=== PATIENT | male | born 1980 | race Caucasian/White ===

== ENCOUNTER 2018-09-23 16:41 | Inpatient (IN) | payer BC ==
[~2018-09-23] VITALS: Ht 175.3 cm; Wt 90.4 kg
[2018-09-23] MEDS ORDERED: FAMOTIDINE 20 MG INJ IV STA (17:42)
[2018-09-23] MEDS ORDERED: SOD CHLORIDE 0.9% 1,000 ML IV STA (17:42)
--- NOTE | 2018-09-23 18:43 | ERD ---
ER Documentation Chief Complaint Chief Complaint RUQ PAIN, YELLOWISH SCLERAE HPI 38-year-old male presents with approximate 60 history of worsening right upper quadrant abdominal pain. Is also noted some yellow eyes over the last few days. Had a few month history of intermittent epigastric pain that he thought was indigestion. Denies any fevers, vomiting, lower abdominal pain, urinary complaints. Denies history of known gallstones. Presents with a referral from a urgent care with a informal ultrasound shows common bile duct dilated with stones and sludge. ROS All systems reviewed and are negative except as per history of present illness. Allergies Allergies: Coded Allergies: No Known Allergy (Unverified , 09/23/18) PMhx/Soc History of Surgery: No Anesthesia Reaction: No Hx Neurological Disorder: No Hx Respiratory Disorders: No Hx Cardiac Disorders: No Hx Psychiatric Problems: No Hx Miscellaneous Medical Probl: No Hx Alcohol Use: No Hx Substance Use: No Hx Tobacco Use: No Smoking Status: Current every day smoker FmHx Family History: No diabetes, No coronary disease, No other Physical Exam Vitals Vital Signs Date Temp Pulse Resp B/P (MAP) Pulse Ox O2 O2 Flow FiO2 Time Delivery Rate 09/23/18 98.5 85 19 158/88 96 16:48 (111) Physical Exam Const: No acute distress Head: Atraumatic Eyes: Positive icterus. Eyes Nicolas. ENT: Normal External Ears, Nose and Mouth. Neck: Full range of motion. No meningismus. Resp: Clear to auscultation bilaterally Cardio: Regular rate and rhythm, no murmurs Abd: Soft, minimal epigastric and right upper quadrant tenderness without Noble sign. No tenderness McBurney's point no rebound. Non distended. Normal bowel sounds Skin: No petechiae or rashes Back: No midline or flank tenderness Ext: No cyanosis, or edema Neur: Awake and alert Psych: Normal Mood and Affect Result Diagram: 09/23/18 1756 09/23/18 1756 Results 24 hrs Laboratory Tests Test 09/23/18 17:56 White Blood Count 7.9 10^3/ul Red Blood Count 5.58 10^6/ul Hemoglobin 16.0 g/dl Hematocrit 48.9 % Mean Corpuscular Volume 87.6 fl Mean Corpuscular Hemoglobin 28.7 pg Mean Corpuscular Hemoglobin Concent 32.7 g/dl Red Cell Distribution Width 13.4 % Platelet Count 280 10^3/UL Mean Platelet Volume 9.9 fl Immature Granulocytes % 0.300 % Neutrophils % 68.4 % Lymphocytes % 20.9 % Monocytes % 9.6 % Eosinophils % 0.4 % Basophils % 0.4 % Nucleated Red Blood Cells % 0.0 /100WBC Immature Granulocytes # 0.020 10^3/ul Neutrophils # 5.4 10^3/ul Lymphocytes # 1.7 10^3/ul Monocytes # 0.8 10^3/ul Eosinophils # 0.0 10^3/ul Basophils # 0.0 10^3/ul Nucleated Red Blood Cells # 0.0 10^3/ul Prothrombin Time 12.2 Sec Prothrombin Time Ratio 1.0 INR International Normalized Ratio 0.89 Activated Partial Thromboplast Time 30.0 Sec Urine Color DOROTHY Urine Clarity CLEAR Urine pH 6.0 Urine Specific [place] 1.003 Urine Ketones 1+ mg/dL Urine Nitrite NEGATIVE mg/dL Urine Bilirubin NEGATIVE mg/dL Urine Urobilinogen NEGATIVE mg/dL Urine Leukocyte Esterase NEGATIVE [place]/ul Urine Hemoglobin NEGATIVE mg/dL Urine Glucose NEGATIVE mg/dL Urine Total Protein NEGATIVE mg/dl Sodium Level 141 mmol/L Potassium Level 3.9 mmol/L Chloride Level 100 mmol/L Carbon Dioxide Level 30 mmol/L Anion Gap 11 Blood Urea Nitrogen 9 mg/dl Creatinine 0.97 mg/dl Est Glomerular Filtrat Rate mL/min > 60 mL/min Glucose Level 101 mg/dl Calcium Level 9.4 mg/dl Total Bilirubin 5.6 mg/dl Direct Bilirubin 4.20 mg/dl Indirect Bilirubin 1.4 mg/dl Aspartate Amino Transf (AST/SGOT) 391 IU/L Alanine Aminotransferase (ALT/SGPT) 748 IU/L Alkaline Phosphatase 234 IU/L Total Protein 9.1 g/dl Albumin 4.6 g/dl Globulin 4.50 g/dl Albumin/Globulin Ratio 1.02 Lipase 91 U/L Current Medications Medications Dose Sig/Joana Start Time Status Last (Trade) Ordered Route PRN Stop Time Admin Dose Reason Admin Sodium 1,000 ml @ Q1H STAT 09/23/18 09/23/18 Chloride 1,000 mls/hr IV 17:42 17:56 09/23/18 18:41 Famotidine 20 mg ONCE STAT 09/23/18 DC 09/23/18 (Pepcid Iv) IV 17:42 17:56 09/23/18 17:43 Procedures/MDM Patient presents with icterus and referral for evaluation of possible choledocholithiasis. CBC is normal. CMP shows transaminitis and elevated total bili as well as indirect bili. Lipase is normal. Right upper quadrant ultrasound shows gallstones with sludge and a stone in the gallbladder neck with dilated common bile duct of 7.8 mm. Patient was placed n.p.o., given 1 L normal saline IV, Pepcid 20 mg IV. Coags normal. Patient will be admitted for further evaluation signs and symptoms of biliary colic and choledocholithiasis. Current signs or symptoms do not suggest sepsis, appendicitis, obstruction, additional complications. Patient has elevated blood pressure as well which we will defer to the inpatient team. Departure Diagnosis: Primary Impression: Choledocholithiasis Additional Impressions: Gallstones Elevated blood pressure reading Condition: ROQUE Qiu MD September 23, 2018 18:43
[2018-09-23] MEDS ORDERED: ONDANSETRON 4 MG INJ IV PRN ×2 (19:30→20:30)
[2018-09-23] MEDS ORDERED: ACETAMINOPHEN 325 MG TAB PO PRN (19:30)
--- NOTE | 2018-09-23 19:53 | CONS ---
Assessment/Plan Assessment/Plan Assessment/Plan (Daily) Choledocholithiasis MRCP - will likely need ERCP Will also need lap fer. Discussed outpatient lap fer. Patient is agreeable. Consultation Date/Type/Reason Admit Date/Time Date/Time of Note DATE: 09/23/18 TIME: 19:48 Hx of Present Illness The patient is a 38-year-old male with no medical issues. Patient was in usual state of health until last week when he developed some upper abdominal pain. Describes it as intermittent epigastric and right upper quadrant pain. Denies nausea or emesis. He denies fevers or chills. This was not severe. However, this morning he noticed that he was jaundiced and presented to the ER. 14 point review of systems was performed. Pertinent negatives and positives per HPI. Past Medical History Medical History: no pertinent history Medications Current Medications Ondansetron HCl (Zofran Inj) 4 mg BRIDGE ORDER PRN IV NAUSEA/VOMITING; Start 09/23/18 at 19:30; Stop 09/24/18 at 19:29 Acetaminophen (Tylenol Tab) 650 mg ER BRIDGE PRN PO .MILD PAIN 1-3 OR TEMP; Start 09/23/18 at 19:30; Stop 09/24/18 at 19:29 Allergies: Coded Allergies: No Known Allergy (Unverified , 09/23/18) Past Surgical History Past Surgical Hx: no surgical history Family History Significant Family History: no pertinent family hx Social History Alcohol Use: rarely Smoking Status: Current every day smoker Exam/Review of Systems Exam Vitals Vital Signs Date Temp Pulse Resp B/P (MAP) Pulse Ox O2 O2 Flow FiO2 Time Delivery Rate 09/23/18 98.5 85 19 158/88 96 16:48 (111) Constitutional: alert, oriented, well developed, other (Icteric) Head: normocephalic, atraumatic Eyes: nl conjunctiva ENMT: nl external ears & nose, nl lips & teeth, nl nasal mucosa & septum Neck: supple, non-tender Respiratory: clear to auscultation, normal air movement Cardiovascular: regular rate and rhythm, nl pulses Gastrointestinal: soft, non-tender, other (Mild epigastric tenderness) Extremities: normal pulses Neurological: TANNER ROTARY DRUM CONTINUOUS PROCESS II-XII intact, nl mental status Skin: nl turgor, rash or lesions Lymph: nl lymph nodes Results Result Diagram: 09/23/18175509/23/18 1756 Results 24hrs Laboratory Tests Test 09/23/18 17:56 White Blood Count 7.9 Red Blood Count 5.58 Hemoglobin 16.0 Hematocrit 48.9 Mean Corpuscular Volume 87.6 Mean Corpuscular Hemoglobin 28.7 L Mean Corpuscular Hemoglobin Concent 32.7 Red Cell Distribution Width 13.4 Platelet Count 280 Mean Platelet Volume 9.9 Immature Granulocytes % 0.300 Neutrophils % 68.4 Lymphocytes % 20.9 Monocytes % 9.6 Eosinophils % 0.4 Basophils % 0.4 Nucleated Red Blood Cells % 0.0 Immature Granulocytes # 0.020 Neutrophils # 5.4 Lymphocytes # 1.7 Monocytes # 0.8 Eosinophils # 0.0 Basophils # 0.0 Nucleated Red Blood Cells # 0.0 Prothrombin Time 12.2 Prothrombin Time Ratio 1.0 INR International Normalized Ratio 0.89 Activated Partial Thromboplast Time 30.0 Urine Color DOROTHY Urine Clarity CLEAR Urine pH 6.0 Urine Specific [employer] 1.003 Urine Ketones 1+ H Urine Nitrite NEGATIVE Urine Bilirubin NEGATIVE Urine Urobilinogen NEGATIVE Urine Leukocyte Esterase NEGATIVE Urine Hemoglobin NEGATIVE Urine Glucose NEGATIVE Urine Total Protein NEGATIVE Sodium Level 141 Potassium Level 3.9 Chloride Level 100 Carbon Dioxide Level 30 Anion Gap 11 Blood Urea Nitrogen 9 Creatinine 0.97 Est Glomerular Filtrat Rate mL/min > 60 Glucose Level 101 Calcium Level 9.4 Total Bilirubin 5.6 H Direct Bilirubin 4.20 H Indirect Bilirubin 1.4 H Aspartate Amino Transf (AST/SGOT) 391 H Alanine Aminotransferase (ALT/SGPT) 748 H Alkaline Phosphatase 234 H Total Protein 9.1 H Albumin 4.6 Globulin 4.50 H Albumin/Globulin Ratio 1.02 Lipase 91 Imaging Imaging Patient: DESIREE CASTELLANOS : 1980 Age: 38 Sex: M MR #: [id number] DOS: 09/23/18 1742 Ordering MD: ROQUE PAREDES MD Location: [facility] Room/Bed: PROCEDURE: US Abdomen (right upper quadrant). CLINICAL INDICATION: Right upper quadrant abdomen pain. TECHNIQUE: Multiple real-time longitudinal and transverse images of the right upper quadrant of the abdomen were acquired utilizing a curved array transducer. Images were reviewed on a high-resolution PACS workstation. COMPARISON: None FINDINGS: The liver is normal in size and normal in echogenicity. There is no focal hepatic lesion. Color Doppler and pulsed Doppler sonography demonstrate normal antegrade flow in the portal vein. The gallbladder contains sludge and gallstones including a gallstone in the gallbladder neck. There is no gallbladder wall thickening or fluid around the gallbladder. The bile ducts are dilated with the common bile duct measuring 7.5 mm in diameter. The visualized portions of the pancreas are unremarkable with obscuration of the tail of the pancreas. No free fluid is present. The right kidney measures 10.8 x 5.5 x 6.8 cm. There is normal echogenicity of the right kidney. There is no perinephric fluid collection. No hydronephrosis, mass, or calculus is seen. IMPRESSION: 1. Gallstones and sludge in the gallbladder. Gallstone in the gallbladder neck. 2. Dilated common bile duct measuring 7.5 mm. 3. Otherwise unremarkable right upper quadrant abdomen ultrasound. RPTAT: QQ .Roque Forte MD, MD Date Time Electronically viewed and signed by .Roque Forte MD, MD on 09/23/2018 18:17 .R/ CC: ROQUE PAREDES MD [id number] Medications Medication Current Medications Ondansetron HCl (Zofran Inj) 4 mg BRIDGE ORDER PRN IV NAUSEA/VOMITING; Start 09/23/18 at 19:30; Stop 09/24/18 at 19:29 Acetaminophen (Tylenol Tab) 650 mg ER BRIDGE PRN PO .MILD PAIN 1-3 OR TEMP; Start 09/23/18 at 19:30; Stop 09/24/18 at 19:29 HADLEY GRUBBS MD September 23, 2018 19:53
[2018-09-23] MEDS ORDERED: NACL 0.9% 3 ML SYG IV SCH (20:30)
[2018-09-23] MEDS ORDERED: BISACODYL (EC) 5 MG TAB PO PRN (20:30)
[2018-09-23] MEDS ORDERED: HYDROmorphONE 0.5 MG/0.5 ML SYG IV PRN (20:30)
[2018-09-23] MEDS ORDERED: DOCUSATE SODIUM 100 MG CAP PO PRN (20:30)
[2018-09-23] MEDS: SOD CHLORIDE 0.9% 1,000 ML IV SCH (23:34)
[2018-09-23 23:43] VITALS: BP 120/83; PULSE 84; RESP 18
[2018-09-23 23:54] VITALS: Ht 175.3 cm; Wt 90.4 kg
[2018-09-24] VITALS (11 sets, daily range): BP systolic 122–143; BP diastolic 73–94; PULSE 72–87; RESP 16–19
--- NOTE | 2018-09-24 05:04 | HP ---
Date/Time of Note Date/Time of Note DATE: 09/24/18 TIME: 04:57 Assessment/Plan VTE Prophylaxis SCD applied (from Nsg): Yes Pharmacological prophylaxis: NA/contraindicated Pharm contraindication: low risk/ambulating Lines/Catheters IV Catheter Type (from Nrsg): Peripheral IV Assessment/Plan Hospital Course This is a 38-year-old male being admitted to the [facility] floor for: #1 choledocholithiasis: Gallbladder ultrasound shows:Gallstones and sludge in the gallbladder. Gallstone in the gallbladder neck. Dilated common bile duct measuring 7.5 mm. We will keep the patient n.p.o. except meds, IV fluid hydration with normal saline. Pain control with Dilaudid. Zofran for nausea. Patient is already been seen by general surgery and recommendation is for ERCP and likely follow-up as an outpatient for elective cholecystectomy. I have consulted of GI for ERCP. #2 borderline obesity: We will check hemoglobin A1c, lipid panel, TSH #3 DVT GI prophylaxis: SCDs, no GI prophylaxis indicated Further treatment strategy will be implemented as per the clinical course. Result Diagram: 09/23/18175509/23/18 175 Results 24hrs Laboratory Tests Test 09/23/18 17:56 White Blood Count 7.9 Red Blood Count 5.58 Hemoglobin 16.0 Hematocrit 48.9 Mean Corpuscular Volume 87.6 Mean Corpuscular Hemoglobin 28.7 L Mean Corpuscular Hemoglobin Concent 32.7 Red Cell Distribution Width 13.4 Platelet Count 280 Mean Platelet Volume 9.9 Immature Granulocytes % 0.300 Neutrophils % 68.4 Lymphocytes % 20.9 Monocytes % 9.6 Eosinophils % 0.4 Basophils % 0.4 Nucleated Red Blood Cells % 0.0 Immature Granulocytes # 0.020 Neutrophils # 5.4 Lymphocytes # 1.7 Monocytes # 0.8 Eosinophils # 0.0 Basophils # 0.0 Nucleated Red Blood Cells # 0.0 Prothrombin Time 12.2 Prothrombin Time Ratio 1.0 INR International Normalized Ratio 0.89 Activated Partial Thromboplast Time 30.0 Urine Color DOROTHY Urine Clarity CLEAR Urine pH 6.0 Urine Specific [place] 1.003 Urine Ketones 1+ H Urine Nitrite NEGATIVE Urine Bilirubin NEGATIVE Urine Urobilinogen NEGATIVE Urine Leukocyte Esterase NEGATIVE Urine Hemoglobin NEGATIVE Urine Glucose NEGATIVE Urine Total Protein NEGATIVE Sodium Level 141 Potassium Level 3.9 Chloride Level 100 Carbon Dioxide Level 30 Anion Gap 11 Blood Urea Nitrogen 9 Creatinine 0.97 Est Glomerular Filtrat Rate mL/min > 60 Glucose Level 101 Calcium Level 9.4 Total Bilirubin 5.6 H Direct Bilirubin 4.20 H Indirect Bilirubin 1.4 H Aspartate Amino Transf (AST/SGOT) 391 H Alanine Aminotransferase (ALT/SGPT) 748 H Alkaline Phosphatase 234 H Total Protein 9.1 H Albumin 4.6 Globulin 4.50 H Albumin/Globulin Ratio 1.02 Lipase 91 HPI/ROS Admit Date/Time Admit Date/Time Hx of Present Illness Chief complaint: Epigastric pain x1 week This is a 38-year-old male who presented to the emergency department with 1 week of epigastric pain. Patient reports that he started experiencing pain in the epigastric area approximately 1 week ago he denies any fevers or nausea or vomiting. He thought it was initially indigestion and he started taking simethicone and other pain medications but he did not notice improvement. He was seen at the urgent care and given medications and sent home. He continued to not feeling relief from the pain. He then yesterday noticed yellow discoloration in his eyes so came into the emergency department. Patient had a gallbladder ultrasound performed in the emergency department which showed Gallstones and sludge in the gallbladder. Gallstone in the gallbladder neck.Dilated common bile duct measuring 7.5 mm. Patient was seen by general surgery who recommended ERCP and likely outpatient follow-up for elective cholecystectomy. Allergies: NKDA Medications: None ROS Const: As per HPI Eyes : As per HPI ENT: No pain, sore throat, congestion, congestion, dysphagia or discharge Respiratory: No shortness of breath, cough, sputum, wheezing, or pleuritic pain Cardiovascular: No chest pain, palpitation, PND, or edema GI : As per HPI Genitourinary: No dysuria, hematuria, flank pain , discharge or CVA tenderness Musculoskeletal: No joint pain, back pain, neck pain, restricted range of motion in neck or joints Skin: No rash, bruising or hives Neuro: No headache, dizziness, syncope, seizure, focal weakness Endocrine: No polyuria, polydipsia, temperature intolerance Psych: No hallucination, depression, anxiety or suicidal ideation PMH/Family/Social Past Medical History Medical History: no pertinent history Medications Current Medications Sodium Chloride 1,000 ml @ 80 mls/hr [id number] IV Last administered on 09/23/18at 23:34; Admin Dose 80 MLS/HR; Start 09/23/18 at 20:13 IV Flush (NS 3 ml) 3 ml PER PROTOCOL IV ; Start 09/23/18 at 20:30 Ondansetron HCl (Zofran Inj) 4 mg Q6H PRN IV NAUSEA/VOMITING; Start 09/23/18 at 20:30 Acetaminophen (Tylenol Tab) 650 mg Q6H PRN PO .PAIN 1-3 OR TEMP; Start 09/23/18 at 20:30 Hydromorphone HCl (Dilaudid) 0.5 mg Q4H PRN IV .SEVERE PAIN 7-10; Start 09/23/18 at 20:30 Docusate Sodium (Colace) 100 mg Q12H PRN PO .CONSTIPATION; Start 09/23/18 at 20:30 Bisacodyl (Dulcolax) 5 mg DAILY PRN PO .CONSTIPATION; Start 09/23/18 at 20:30 Coded Allergies: No Known Allergy (Unverified , 09/23/18) Past Surgical History Past Surgical Hx: no surgical history Family History Significant Family History: no pertinent family hx Social History Alcohol Use: none Smoking Status: Never smoker Drug Use: none Exam/Review of Systems Vital Signs Vitals Vital Signs Date Temp Pulse Resp B/P (MAP) Pulse Ox O2 O2 Flow FiO2 Time Delivery Rate 09/23/18 98.4 84 18 120/83 97 Room Air 23:43 (95) Intake and Output 09/23/18 09/23/18 09/24/18 1515:00 23:00 07:00 IntakeIntake Total 450 ml BalanceBalance 450 ml Exam Exam General: Pleasant male currently lying in bed in no acute distress HEENT: Atraumatic, normocephalic. The pupils are equal, round and reactive. Extraocular motor are intact Neck: Supple with full range of motion. No rigidity or meningismus Chest: Nontender Lungs: Clear to auscultation bilaterally no crackles rales or wheezing Heart: Normal S1-S2, Regular rhythm and rate. No murmur, S3, or S4 Abdomen: Soft , epigastric pain to palpation, nondistended bowel sounds are present. No guarding no rebound tenderness , No masses or organomegaly. No costovertebral temporal angle mass Extremities: Normal to inspection, no edema no cyanosis Neurologic: Normal mental status, speech normal, cranial nerves II through XII are intact, motor and sensory are intact, no focal weakness Additional Comments PROCEDURE: US Abdomen (right upper quadrant). CLINICAL INDICATION: Right upper quadrant abdomen pain. TECHNIQUE: Multiple real-time longitudinal and transverse images of the right upper quadrant of the abdomen were acquired utilizing a curved array transducer. Images were reviewed on a high-resolution PACS workstation. COMPARISON: None FINDINGS: The liver is normal in size and normal in echogenicity. There is no focal hepatic lesion. Color Doppler and pulsed Doppler sonography demonstrate normal antegrade flow in the portal vein. The gallbladder contains sludge and gallstones including a gallstone in the gallbladder neck. There is no gallbladder wall thickening or fluid around the gallbladder. The bile ducts are dilated with the common bile duct measuring 7.5 mm in diameter. The visualized portions of the pancreas are unremarkable with obscuration of the tail of the pancreas. No free fluid is present. The right kidney measures 10.8 x 5.5 x 6.8 cm. There is normal echogenicity of the right kidney. There is no perinephric fluid collection. No hydronephrosis, mass, or calculus is seen. IMPRESSION: 1. .Gallstones and sludge in the gallbladder. Gallstone in the gallbladder neck. 2. Dilated common bile duct measuring 7.5 mm 3. Otherwise unremarkable right upper quadrant abdomen ultrasound. RPTAT: QQ .Roque Forte MD, Date Time Electronically viewed and signed by .Roque Forte MD, on 09/23/2018 18:17 .R/ CC: ROQUE PAREDES MD [id number] BALDEV CHAUDHARY September 24, 2018 05:04
[2018-09-24] MEDS: SOD CHLORIDE 0.9% 1,000 ML IV SCH ×2 (08:43→11:34)
--- NOTE | 2018-09-24 11:52 | PN ---
Date/Time of Note Date/Time of Note DATE: 09/24/18 TIME: 11:51 Assessment/Plan VTE Prophylaxis Risk score (from Nsg)>0 risk: 1 SCD applied (from Nsg): Yes Pharmacological prophylaxis: NA/contraindicated Pharm contraindication: low risk/ambulating Lines/Catheters [facility] (from [facility]): Peripheral IV Assessment/Plan Hospital Course SUBJECTIVE: Lying in bed comfortably. No abdominal pain. No fevers. OBJECTIVE: Vital signs-see below PHYSICAL EXAM: Constitutional: Adequately built,not in acute distress. HEENT: Head atraumatic and normocephalic. Eyes: Extraocular muscles intact. Anicteric sclerae. Pupils equal bilaterally, reactive to light. NECK: Supple without lymph node. CHEST: Clear and good breath sounds equally. No wheezing. No rhonchi. HEART: S1, S2. Regular rate and rhythm. ABDOMEN: Soft/non tender with no rebound tenderness. Bowel sounds were present. EXTREMITIES: No cyanosis, clubbing or edema. NEUROLOGIC: Alert and oriented x3. No focal deficit. No sensory deficit. PSYCHOSOCIAL: No signs of depression. INTEGUMENTARY: No open wounds. ASSESSMENT AND PLAN:38 yo M w/ no PMH here w/abd pain, found to have choledocholithiasis/cholelithiasis. Choledocholithiasis -Plan is ERCP this afternoon -N.p.o., pain medications. Cholelithiasis -Appreciate surgery follow-up and recommended eventual outpatient cholecystectomy. VT prophylaxis: SCDs Disposition: Patient is scheduled for ERCP today. Likely can be discharged in a.m. if procedure uneventful and patient with clinical improvement with outpatient surgical follow-up for cholecystectomy. Patient was seen in collaboration with Dr. Luu. Result Diagram: 09/24/18 0447 09/24/18 0447 Results 24hrs Laboratory Tests Test 09/23/18 17:56 09/24/18 04:47 09/24/18 08:39 White Blood Count 7.9 6.3 # Red Blood Count 5.58 5.32 Hemoglobin 16.0 15.3 Hematocrit 48.9 46.4 Mean Corpuscular Volume 87.6 87.2 Mean Corpuscular Hemoglobin 28.7 L 28.8 L Mean Corpuscular Hemoglobin Concent 32.7 33.0 Red Cell Distribution Width 13.4 13.4 Platelet Count 280 278 Mean Platelet Volume 9.9 9.5 Immature Granulocytes % 0.300 0.500 H Neutrophils % 68.4 59.2 Lymphocytes % 20.9 26.5 Monocytes % 9.6 12.1 H Eosinophils % 0.4 1.1 Basophils % 0.4 0.6 Nucleated Red Blood Cells % 0.0 0.0 Immature Granulocytes # 0.020 0.030 Neutrophils # 5.4 3.7 Lymphocytes # 1.7 1.7 Monocytes # 0.8 0.8 Eosinophils # 0.0 0.1 Basophils # 0.0 0.0 Nucleated Red Blood Cells # 0.0 0.0 Prothrombin Time 12.2 Prothrombin Time Ratio 1.0 INR International Normalized Ratio 0.89 Activated Partial Thromboplast Time 30.0 Urine Color DOROTHY Urine Clarity CLEAR Urine pH 6.0 Urine Specific [place] 1.003 Urine Ketones 1+ H Urine Nitrite NEGATIVE Urine Bilirubin NEGATIVE Urine Urobilinogen NEGATIVE Urine Leukocyte Esterase NEGATIVE Urine Hemoglobin NEGATIVE Urine Glucose NEGATIVE Urine Total Protein NEGATIVE Sodium Level 141 142 Potassium Level 3.9 4.0 Chloride Level 100 106 Carbon Dioxide Level 30 28 Anion Gap 11 8 Blood Urea Nitrogen 9 11 Creatinine 0.97 1.07 Est Glomerular Filtrat Rate mL/min > 60 > 60 Glucose Level 101 97 Calcium Level 9.4 8.9 Total Bilirubin 5.6 H 4.9 H Direct Bilirubin 4.20 H 3.50 H Indirect Bilirubin 1.4 H 1.4 H Aspartate Amino Transf (AST/SGOT) 391 H 382 H Alanine Aminotransferase (ALT/SGPT) 748 H 712 H Alkaline Phosphatase 234 H 169 H Total Protein 9.1 H 7.6 # Albumin 4.6 4.1 Globulin 4.50 H 3.50 H Albumin/Globulin Ratio 1.02 1.17 Lipase 91 Hemoglobin A1c 5.5 Magnesium Level 2.3 Triglycerides Level 170 H Cholesterol Level 188 LDL Cholesterol, Calculated 126 HDL Cholesterol 28 Cholesterol/HDL Ratio 6.7 Thyroid Stimulating Hormone (TSH) 2.160 Ethyl Alcohol Level < 10.0 H Hepatitis B Surface Antigen NEGATIVE Hepatitis B Core Total Antibody NEGATIVE Hepatitis C Antibody NEGATIVE Exam/Review of Systems Exam Vitals Vital Signs Date Temp Pulse Resp B/P (MAP) Pulse Ox O2 O2 Flow FiO2 Time Delivery Rate 09/24/18 98.0 87 18 122/78 97 Room Air 08:29 (93) Intake and Output 09/23/18 09/23/18 09/24/18 1515:00 23:00 07:00 IntakeIntake Total 450 ml BalanceBalance 450 ml Results Results 24hrs Laboratory Tests Test 09/23/18 17:56 09/24/18 04:47 09/24/18 08:39 White Blood Count 7.9 6.3 # Red Blood Count 5.58 5.32 Hemoglobin 16.0 15.3 Hematocrit 48.9 46.4 Mean Corpuscular Volume 87.6 87.2 Mean Corpuscular Hemoglobin 28.7 L 28.8 L Mean Corpuscular Hemoglobin Concent 32.7 33.0 Red Cell Distribution Width 13.4 13.4 Platelet Count 280 278 Mean Platelet Volume 9.9 9.5 Immature Granulocytes % 0.300 0.500 H Neutrophils % 68.4 59.2 Lymphocytes % 20.9 26.5 Monocytes % 9.6 12.1 H Eosinophils % 0.4 1.1 Basophils % 0.4 0.6 Nucleated Red Blood Cells % 0.0 0.0 Immature Granulocytes # 0.020 0.030 Neutrophils # 5.4 3.7 Lymphocytes # 1.7 1.7 Monocytes # 0.8 0.8 Eosinophils # 0.0 0.1 Basophils # 0.0 0.0 Nucleated Red Blood Cells # 0.0 0.0 Prothrombin Time 12.2 Prothrombin Time Ratio 1.0 INR International Normalized Ratio 0.89 Activated Partial Thromboplast Time 30.0 Urine Color DOROTHY Urine Clarity CLEAR Urine pH 6.0 Urine Specific [place] 1.003 Urine Ketones 1+ H Urine Nitrite NEGATIVE Urine Bilirubin NEGATIVE Urine Urobilinogen NEGATIVE Urine Leukocyte Esterase NEGATIVE Urine Hemoglobin NEGATIVE Urine Glucose NEGATIVE Urine Total Protein NEGATIVE Sodium Level 141 142 Potassium Level 3.9 4.0 Chloride Level 100 106 Carbon Dioxide Level 30 28 Anion Gap 11 8 Blood Urea Nitrogen 9 11 Creatinine 0.97 1.07 Est Glomerular Filtrat Rate mL/min > 60 > 60 Glucose Level 101 97 Calcium Level 9.4 8.9 Total Bilirubin 5.6 H 4.9 H Direct Bilirubin 4.20 H 3.50 H Indirect Bilirubin 1.4 H 1.4 H Aspartate Amino Transf (AST/SGOT) 391 H 382 H Alanine Aminotransferase (ALT/SGPT) 748 H 712 H Alkaline Phosphatase 234 H 169 H Total Protein 9.1 H 7.6 # Albumin 4.6 4.1 Globulin 4.50 H 3.50 H Albumin/Globulin Ratio 1.02 1.17 Lipase 91 Hemoglobin A1c 5.5 Magnesium Level 2.3 Triglycerides Level 170 H Cholesterol Level 188 LDL Cholesterol, Calculated 126 HDL Cholesterol 28 Cholesterol/HDL Ratio 6.7 Thyroid Stimulating Hormone (TSH) 2.160 Ethyl Alcohol Level < 10.0 H Hepatitis B Surface Antigen NEGATIVE Hepatitis B Core Total Antibody NEGATIVE Hepatitis C Antibody NEGATIVE Medications Medication Current Medications Sodium Chloride 1,000 ml @ 80 mls/hr [id number] IV Last administered on 09/24/18at 11:34; Admin Dose 80 MLS/HR; Start 09/23/18 at 20:13 IV Flush (NS 3 ml) 3 ml PER PROTOCOL IV ; Start 09/23/18 at 20:30 Ondansetron HCl (Zofran Inj) 4 mg Q6H PRN IV NAUSEA/VOMITING; Start 09/23/18 at 20:30 Acetaminophen (Tylenol Tab) 650 mg Q6H PRN PO .PAIN 1-3 OR TEMP; Start 09/23/18 at 20:30 Hydromorphone HCl (Dilaudid) 0.5 mg Q4H PRN IV .SEVERE PAIN 7-10; Start 09/23/18 at 20:30 Docusate Sodium (Colace) 100 mg Q12H PRN PO .CONSTIPATION; Start 09/23/18 at 20:30 Bisacodyl (Dulcolax) 5 mg DAILY PRN PO .CONSTIPATION; Start 09/23/18 at 20:30 REID RODRIGUEZ NP September 24, 2018 11:52
--- NOTE | 2018-09-24 15:44 | CONS ---
DATE OF ADMISSION: 09/23/2018 DATE OF CONSULTATION: TYPE OF CONSULTATION: Gastroenterology. Dear Dr. Chaudhary: Thank you for asking me to see Mr. Lockhart in GI consultation. HISTORY OF PRESENT ILLNESS: The patient, as you know, is a 38-year-old male. He is admitte d to the hospital because of history of abdominal pain. The patient has been experiencing upper abdo henrique pain for the past 1 week. Pain is mostly in the epigastric region associated with nausea, but no vomiting, no GI bleeding, no fever. He developed jaundice and hence, he reported to the emergency room and he was admitted from hospital emergency room. Ultrasound of the abdomen showed evidence of gallstones and dilated common bile duct. SOCIAL HISTORY: The patient does not smoke or drink. PAST SURGICAL HISTORY: The patient has no previous surgeries. REVIEW OF SYSTEM: Totally unremarkable. MEDICATIONS PRIOR TO ADMISSION: Include none. FAMILY HISTORY: Unremarkable. PHYSICAL EXAMINATION: GENERAL: The patient is a 38-year-old male who at this time is alert, well built. VITAL SIGNS: He is afebrile. CARDIOVASCULAR: Normal heart sounds. RESPIRATORY: Normal breath sounds. ABDOMEN: Showed unremarkable findings. HEENT: Examination of the eyes and skin reveals he got jaundice. LABORATORY WORKUP: WBC count is 6300 today, yesterday was 7900, neutrophils 59, lymphocytes 26, mono cytes 12. Total bilirubin was 5.6 yesterday, today is 4.9, AST is 382 today, ALT is 712, alkaline ph osphatase is 169. CLINICAL IMPRESSION: The patient has evidence of a cholecystitis, evidence of biliary ductal dilatat ion. In the presence of the jaundice, there is good possibility is that we are dealing with choledoc holithiasis. PLAN: I recommend ERCP. I discussed with the patient. The patient agreed for ERCP. Once again, Dr. Chaudhary, thank you for this consultation. Dictated By: CHARLEY DIAMOND MD NC/NTS Conf#: [id number] DID#: [id number] CC: BALDEV CHAUDHARY MD; HADLEY GRUBBS MD;*EndCC*
--- NOTE | 2018-09-24 16:38 | PREAC ---
Date/Time of Note Date/Time of Note DATE: 09/24/18 TIME: 16:37 Anesthesia Eval and Record Evaluation Time Pre-Procedure Interview DATE: 09/24/18 TIME: 16:37 Age 38 Sex male NPO: 8 hrs Preoperative diagnosis choledocholithiasis Planned procedure ERCP Past Medical History Past Medical History: Includes GI: Obesity (borderline) Surgery & Anesthesia Issues No known issue Meds Anticoagulation: No Beta Iglesia within 24 hr: No Reason Beta Iglesia not given: Pt. not on B-Iglesia Current Medications Sodium Chloride 1,000 ml @ 80 mls/hr [id number] IV Last administered on 09/24/18at 11:34; Admin Dose 80 MLS/HR; Start 09/23/18 at 20:13 IV Flush (NS 3 ml) 3 ml PER PROTOCOL IV ; Start 09/23/18 at 20:30 Ondansetron HCl (Zofran Inj) 4 mg Q6H PRN IV NAUSEA/VOMITING; Start 09/23/18 at 20:30 Acetaminophen (Tylenol Tab) 650 mg Q6H PRN PO .PAIN 1-3 OR TEMP; Start 09/23/18 at 20:30 Hydromorphone HCl (Dilaudid) 0.5 mg Q4H PRN IV .SEVERE PAIN 7-10; Start 09/23/18 at 20:30 Docusate Sodium (Colace) 100 mg Q12H PRN PO .CONSTIPATION; Start 09/23/18 at 20:30 Bisacodyl (Dulcolax) 5 mg DAILY PRN PO .CONSTIPATION; Start 09/23/18 at 20:30 Meds reviewed: Yes Allergies Coded Allergies: No Known Allergy (Unverified , 09/23/18) Allergies Reviewed: Yes Labs/Studies Labs Reviewed: Reviewed by anesthesiologist Result Diagram: 09/24/18 0447 09/24/187 Laboratory Tests 09/24/18 04:47 test: N/A Pre-procedure Exam Last vitals Vital Signs Date Temp Pulse Resp B/P (MAP) Pulse Ox O2 O2 Flow FiO2 Time Delivery Rate 09/24/18 98.0 87 18 122/78 97 Room Air 08:29 (93) Airway: Adequate mouth opening, Adequate thyromental dist Mallampati: Mallampati II Teeth: Normal Lung: Normal Heart: Normal ASA Physical Status ASA physical status: 2 Emergency: None Planned Anesthetic General/MAC: ETT Planned Pain Management Parenteral pain med Pre-operative Attestations Prior to commencing anesthesia and surgery, the patient was re-evaluated, there was verification of: *The patient's identity *The results of appropriate recent lab work and preoperative vital signs *The above evaluation not changing prior to induction *Anesthetic plan, risk benefits, alternative and complications discussed with patient/family; questions answered; patient/family understands, accepts and wishes to proceed. EARL CASANOVA MD September 24, 2018 16:38
--- NOTE | 2018-09-24 18:10 | PN ---
Date/Time of Note Date/Time of Note DATE: 09/24/18 TIME: 18:09 Assessment/Plan Lines/Catheters IV Catheter Type (from Nrsg): Peripheral IV Assessment/Plan Assessment/Plan CBD stones ERCP pending Subjective 24 Hr Interval Summary Constitutional: no complaints Feeding: NPO Pain Control: mild Exam/Review of Systems Vital Signs Vitals Vital Signs Date Temp Pulse Resp B/P (MAP) Pulse Ox O2 O2 Flow FiO2 Time Delivery Rate 09/24/18 97.8 80 18 126/80 94 Room Air 14:00 (95) Intake and Output 09/23/18 09/23/18 09/24/18 1515:00 23:00 07:00 IntakeIntake Total 450 ml BalanceBalance 450 ml Exam Constitutional: alert, oriented, well developed, other (icteric) Gastrointestinal: soft, non-tender Results Result Diagram: 09/24/18 0447 09/24/18 0447 HADLEY GRUBBS MD September 24, 2018 18:10
[2018-09-24] MEDS ORDERED: MIDAZOLAM 1 MG/ML 2 ML INJ ONE (19:48)
[2018-09-24] MEDS ORDERED: LIDOCAINE 2% (SDV) 5 ML INJ ONE (19:50)
[2018-09-24] MEDS ORDERED: SUCCINYLCHOLINE CHLORIDE 100 MG/5 ML SYG IV ONE (19:50)
[2018-09-24] MEDS ORDERED: PROPOFOL 20 ML ONE (19:50)
[2018-09-24] MEDS ORDERED: FENTAnyl 50 MCG/ML VIAL IV PRN (20:00)
[2018-09-24] MEDS ORDERED: DIPHENHYDRAMINE 50 MG INJ IV PRN (20:00)
[2018-09-24] MEDS ORDERED: MEPERIDINE 25 MG INJ IV PRN (20:00)
[2018-09-24] MEDS ORDERED: PROCHLORPERAZINE 10 MG INJ IV PRN (20:00)
[2018-09-24] MEDS ORDERED: ONDANSETRON 4 MG INJ IV PRN (20:00)
[2018-09-24] MEDS ORDERED: HYDROmorphONE 1 MG/5 ML IV SYRINGE IV PRN ×3 (20:00)
--- NOTE | 2018-09-24 20:35 | OPR ---
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
--- NOTE | 2018-09-24 21:03 | PAC ---
Date/Time of Note Date/Time of Note DATE: 09/24/18 TIME: 21:03 Post-Anesthesia Notes Post-Anesthesia Note Last documented vital signs Vital Signs Date Temp Pulse Resp B/P (MAP) Pulse Ox O2 O2 Flow FiO2 Time Delivery Rate 09/24/18 78 17 128/83 100 Mask 8.0 20:52 (98) 09/24/18 98.0 20:47 Activity: WNL Respiratory function: WNL Cardiovascular function: WNL Mental status: Baseline Pain reasonably controlled: Yes Hydration appropriate: Yes Nausea/Vomiting absent: Yes Comments BP: 133/73 HR: 72 RR: 15 T: 98 Sao2: 100% EARL CASANOVA MD September 24, 2018 21:03
[2018-09-24] MEDS: CEPASTAT LOZENGE MT PRN (22:33)
[2018-09-25] VITALS: BP 133/86; PULSE 74; RESP 18
--- NOTE | 2018-09-25 02:30 | GILP ---
DATE OF PROCEDURE: PROCEDURE: ERCP, sphincterotomy, removal of the common bile duct stone. PREOPERATIVE DIAGNOSIS: Common bile duct stone. POSTOPERATIVE DIAGNOSES: Common bile duct stone. DESCRIPTION OF PROCEDURE: After informed written consent was obtained, the patient was intubated by anesthesiologist, Dr. Brown. When the patient was in prone position, Olympus video side-viewing duode noscope was inserted into the oropharynx, then into the esophagus, subsequently into the stomach and then into the duodenum. The ampulla was located in normal location with normal morphology. By using the Dreamtome, initially pancreatic duct was cannulated, which appeared normal. Subsequently, commo n bile duct was also cannulated. There is evidence of a dilatation of the common bile duct noted. T here is evidence of filling defects noted consistent with the stones. At this time, by using the cutting wire of the Dreamtome, sphincterotomy was performed, about 8 mm cu t of the sphincter was made. Following this, the sphincterotome was removed. A 9 x 12 stone extract ion balloon was inserted into the common hepatic duct. Balloon sweeping was performed. Multiple sto jw were removed. The stones were measuring up to 1 cm in diameter, which were broken into pieces an d they are all brought down. There were no more filling defects noted at the end of the procedure. At this time, over the guidewire, a 10 x 7 Yeso type of endobiliary prosthesis was inserted into the common bile duct across the ampulla into the duodenum and photographs were obtained and the proc edure was terminated. PLAN: Recommend proceed with a cholecystectomy. Dictated By: CHARLEY SPRINGER/BRIELLE Conf#: [id number] DID#: [id number] CC: BALDEV CHAUDHARY MD; HADLEY GRUBBS MD;*End*
[2018-09-25] MEDS: SOD CHLORIDE 0.9% 1,000 ML IV SCH ×2 (03:36→15:40)
[2018-09-25 07:49] VITALS: BP 117/75; PULSE 77; RESP 18
--- NOTE | 2018-09-25 10:53 | PN ---
Date/Time of Note Date/Time of Note DATE: 09/25/18 TIME: 10:51 Assessment/Plan VTE [place] [facility] [place]: 1 [place] [facility] [place] SCD contraindicated: low risk/ambulating Pharmacological prophylaxis: heparin Pharm contraindication: low risk/ambulating Lines/Catheters IV Catheter Type (from [facility]): Peripheral IV Urinary Cath still in place: No Assessment/Plan Problems: (1) Choledocholithiasis Status: Acute Comment: He is coming into line nicely after intervention. Please see below. He will ultimately need outpatient laparoscopic cholecystectomy when everything has settled (2) S/P ERCP Onset Date: ~ 09/24/2018 Status: Acute Comment: No postprocedure complications, although I will recheck amylase and lipase to be safe (3) History of biliary stent insertion Onset Date: ~ 09/24/2018 Status: Acute Comment: Stable and functional (4) Elevated blood pressure reading Status: Acute Comment: Resolved Result Diagram: 09/25/18 0449 09/25/189 Results 24hrs Laboratory Tests Test 09/25/18 04:49 White Blood Count 8.6 # Red Blood Count 5.03 Hemoglobin 14.2 Hematocrit 43.4 Mean Corpuscular Volume 86.3 Mean Corpuscular Hemoglobin 28.2 L Mean Corpuscular Hemoglobin Concent 32.7 Red Cell Distribution Width 13.2 Platelet Count 290 Mean Platelet Volume 9.6 Immature Granulocytes % 0.300 Neutrophils % 69.4 Lymphocytes % 18.7 Monocytes % 10.8 Eosinophils % 0.6 Basophils % 0.2 Nucleated Red Blood Cells % 0.0 Immature Granulocytes # 0.030 Neutrophils # 6.0 Lymphocytes # 1.6 Monocytes # 0.9 Eosinophils # 0.1 Basophils # 0.0 Nucleated Red Blood Cells # 0.0 Sodium Level 142 Potassium Level 4.4 Chloride Level 106 Carbon Dioxide Level 30 Anion Gap 6 Blood Urea Nitrogen 10 Creatinine 0.92 Est Glomerular Filtrat Rate mL/min > 60 Glucose Level 127 Calcium Level 8.6 Total Bilirubin 2.9 #H Direct Bilirubin 1.50 #H Indirect Bilirubin 1.4 H Aspartate Amino Transf (AST/SGOT) 346 H Alanine Aminotransferase (ALT/SGPT) 721 H Alkaline Phosphatase 150 H Total Protein 7.2 Albumin 3.6 Globulin 3.60 H Albumin/Globulin Ratio 1.00 Subjective 24 Hr Interval Summary Free Text/Dictation The patient reports that he is feeling better with less GI symptoms. Denies pruritus Constitutional: no complaints Respiratory: no complaints Cardiovascular: no complaints Gastrointestinal: no complaints (Nausea no vomiting tomas pain) Skin: other (No pruritus) Exam/Review of Systems Exam Vitals Vital Signs Date Temp Pulse Resp B/P (MAP) Pulse Ox O2 O2 Flow FiO2 Time Delivery Rate 09/25/18 97.8 77 18 117/75 96 07:49 (89) 09/24/18 Room Air 21:22 09/24/18 8.0 21:02 Intake and Output 09/24/18 09/24/18 09/25/18 1515:00 23:00 07:00 IntakeIntake Total 320 ml 580 ml 1660 ml OutputOutput Total 500 ml 450 ml 800 ml BalanceBalance -180 ml 130 ml 860 ml Constitutional: alert, oriented Eyes: icteric (Mild icterus) Respiratory: clear to auscultation, normal air movement Cardiovascular: regular rate and rhythm, nl pulses Gastrointestinal: soft, nl liver, spleen, non-tender Results Results 24hrs Laboratory Tests Test 09/25/18 04:49 White Blood Count 8.6 # Red Blood Count 5.03 Hemoglobin 14.2 Hematocrit 43.4 Mean Corpuscular Volume 86.3 Mean Corpuscular Hemoglobin 28.2 L Mean Corpuscular Hemoglobin Concent 32.7 Red Cell Distribution Width 13.2 Platelet Count 290 Mean Platelet Volume 9.6 Immature Granulocytes % 0.300 Neutrophils % 69.4 Lymphocytes % 18.7 Monocytes % 10.8 Eosinophils % 0.6 Basophils % 0.2 Nucleated Red Blood Cells % 0.0 Immature Granulocytes # 0.030 Neutrophils # 6.0 Lymphocytes # 1.6 Monocytes # 0.9 Eosinophils # 0.1 Basophils # 0.0 Nucleated Red Blood Cells # 0.0 Sodium Level 142 Potassium Level 4.4 Chloride Level 106 Carbon Dioxide Level 30 Anion Gap 6 Blood Urea Nitrogen 10 Creatinine 0.92 Est Glomerular Filtrat Rate mL/min > 60 Glucose Level 127 Calcium Level 8.6 Total Bilirubin 2.9 #H Direct Bilirubin 1.50 #H Indirect Bilirubin 1.4 H Aspartate Amino Transf (AST/SGOT) 346 H Alanine Aminotransferase (ALT/SGPT) 721 H Alkaline Phosphatase 150 H Total Protein 7.2 Albumin 3.6 Globulin 3.60 H Albumin/Globulin Ratio 1.00 Medications Medication Current Medications Sodium Chloride 1,000 ml @ 80 mls/hr [id number] IV Last administered on 09/25/18at 03:36; Admin Dose 80 MLS/HR; Start 09/23/18 at 20:13 IV Flush (NS 3 ml) 3 ml PER PROTOCOL IV Last administered on 09/24/18at 22:02; Admin Dose 3 ML; Start 09/23/18 at 20:30 Ondansetron HCl (Zofran Inj) 4 mg Q6H PRN IV NAUSEA/VOMITING; Start 09/23/18 at 20:30 Acetaminophen (Tylenol Tab) 650 mg Q6H PRN PO .PAIN 1-3 OR TEMP; Start 09/23/18 at 20:30 Hydromorphone HCl (Dilaudid) 0.5 mg Q4H PRN IV .SEVERE PAIN 7-10; Start 09/23/18 at 20:30 Docusate Sodium (Colace) 100 mg Q12H PRN PO .CONSTIPATION; Start 09/23/18 at 20:30 Bisacodyl (Dulcolax) 5 mg DAILY PRN PO .CONSTIPATION; Start 09/23/18 at 20:30 Phenol (Cepastat Lozenge) 1 lozenge Q1H PRN MT SORE THROAT Last administered on 09/24/18at 22:33; Admin Dose 1 LOZENGE; Start 09/24/18 at 22:30 ALAN FRAGOSO MD Sep 25, 2018 10:53
[2018-09-25] MEDS: CEPASTAT LOZENGE MT PRN ×2 (12:04→16:10)
[2018-09-25 13:03] VITALS: BP 127/75; PULSE 90; RESP 18
--- NOTE | 2018-09-25 15:21 | PN ---
Date/Time of Note Date/Time of Note DATE: 09/25/18 TIME: 15:20 Assessment/Plan Lines/Catheters IV Catheter Type (from Nrs): Peripheral IV Monk in Place (from Nrs): No Assessment/Plan Assessment/Plan Hospital day #2 with choledocholithiasis Status post ERCP yesterday with stone extraction. LFTs resolving. Okay to discharge from surgical perspective IN the next day or so and will follow up with me for outpatient lap fer Subjective 24 Hr Interval Summary Constitutional: no complaints, improved Pain Control: mild Exam/Review of Systems Vital Signs Vitals Vital Signs Date Temp Pulse Resp B/P (MAP) Pulse Ox O2 O2 Flow FiO2 Time Delivery Rate 09/25/18 98.7 90 18 127/75 97 13:03 (92) 09/24/18 Room Air 21:22 09/24/18 8.0 21:02 Intake and Output 09/24/18 09/24/18 09/25/18 1515:00 23:00 07:00 IntakeIntake Total 320 ml 580 ml 1660 ml OutputOutput Total 500 ml 450 ml 800 ml BalanceBalance -180 ml 130 ml 860 ml Exam Gastrointestinal: soft, non-tender Results Result Diagram: 09/25/18 0449 09/25/18 0449 HADLEY GRUBBS MD Sep 25, 2018 15:21
[2018-09-25] MEDS: ACETAMINOPHEN 325 MG TAB PO PRN ×2 (15:40→21:36)
[2018-09-25 20:37] VITALS: BP 139/81; PULSE 87; RESP 18
[2018-09-26 01:54] VITALS: BP 126/79; PULSE 62; RESP 19
[2018-09-26] MEDS: SOD CHLORIDE 0.9% 1,000 ML IV SCH (03:13)
[2018-09-26 07:46] VITALS: BP 113/79; PULSE 66; RESP 18
[2018-09-26] MEDS: CEPASTAT LOZENGE MT PRN (10:02)
--- NOTE | 2018-09-26 11:47 | DS ---
Date/Time of Note Date/Time of Note DATE: 09/26/18 TIME: 11:43 Discharge Summary Admission/Discharge Info Admit Date/Time September 23, 2018 at 19:11 Discharge Date/Time September 26, 2018 Discharge Diagnosis Choledocholithiasis with obstructing common bile duct stone without pancreatitis; cute cholecystitis Patient Condition: Good Consults General surgery-Dr. Grubbs; gastroenterology-Dr. Felipe Procedures ERCP with sphincterotomy and stent placement Procedure Description ercp donbe sphincterotomy done cbd stones removed Gallbladder ultrasound Hx of Present Illness HPI 38-year-old male presents with approximate 60 history of worsening right upper quadrant abdominal pain. Is also noted some yellow eyes over the last few days. Had a few month history of intermittent epigastric pain that he thought was indigestion. Denies any fevers, vomiting, lower abdominal pain, urinary complaints. Denies history of known gallstones. Presents with a referral from a urgent care with a informal ultrasound shows common bile duct dilated with stones and sludge. Hx of Present Illness The patient is a 38-year-old male with no medical issues. Patient was in usual state of health until last week when he developed some upper abdominal pain. Describes it as intermittent epigastric and right upper quadrant pain. Denies nausea or emesis. He denies fevers or chills. This was not severe. However, this morning he noticed that he was jaundiced and presented to the ER. 14 point review of systems was performed. Pertinent negatives and positives per HPI. Hx of Present Illness Chief complaint: Epigastric pain x1 week This is a 38-year-old male who presented to the emergency department with 1 week of epigastric pain. Patient reports that he started experiencing pain in the epigastric area approximately 1 week ago he denies any fevers or nausea or vomiting. He thought it was initially indigestion and he started taking simethicone and other pain medications but he did not notice improvement. He was seen at the urgent care and given medications and sent home. He continued to not feeling relief from the pain. He then yesterday noticed yellow discoloration in his eyes so came into the emergency department. Patient had a gallbladder ultrasound performed in the emergency department which showed Gallstones and sludge in the gallbladder. Gallstone in the gallbladder neck.Dil ated common bile duct measuring 7.5 mm. Patient was seen by general surgery who recommended ERCP and likely outpatient follow-up for elective cholecystectomy. HISTORY OF PRESENT ILLNESS: The patient, as you know, is a 38-year-old male. He is admitted to the hospital because of history of abdominal pain. The patient has been experiencing upper abdominal pain for the past 1 week. Pain is mostly in the epigastric region associated with nausea, but no vomiting, no GI bleeding, no fever. He developed jaundice and hence, he reported to the emergency room and he was admitted from hospital emergency room. Ultrasound of the abdomen showed evidence of gallstones and dilated common bile duct. Hospital Course Charming young man who came in with biliary obstruction and choledocholithiasis. He underwent ERCP with sphincterotomy and removal of common bile duct stones followed by stent placement. He has done well on his chemistries to come down and there was no evidence of postprocedure pancreatitis. He is now stable for discharge home. He will follow-up with general surgery to set up an elective time for gallbladder and then after that for removal of the stent. Follow-up Plan Dr. Grubbs in 1 to 2 weeks; Dr. Gerard in 6 weeks Primary Care Provider Care Physician No Primary Time spent on discharge: > 30 minutes Pending Labs Laboratory Tests Test 09/26/18 04:25 White Blood Count 6.5 10^3/ul (4.8-10.8) Red Blood Count 5.07 10^6/ul (4.70-6.10) Hemoglobin 14.5 g/dl (14.0-18.0) Hematocrit 44.4 % (42.0-52.0) Mean Corpuscular Volume 87.6 fl (82.0-101.0) Mean Corpuscular Hemoglobin 28.6 pg (29.0-33.0) Mean Corpuscular Hemoglobin Concent 32.7 g/dl (32.0-37.0) Red Cell Distribution Width 13.6 % (11.5-14.5) Platelet Count 296 10^3/UL (140-415) Mean Platelet Volume 9.9 fl (7.4-10.4) Immature Granulocytes % 0.500 % (0.001-0.429) Neutrophils % 57.4 % (39.0-77.0) Lymphocytes % 28.5 % (15.0-51.0) Monocytes % 10.9 % (0.0-11.0) Eosinophils % 2.2 % (0.0-7.0) Basophils % 0.5 % (0.0-2.0) Nucleated Red Blood Cells % 0.0 /100WBC (0.0-0.0) Immature Granulocytes # 0.030 10^3/ul (0.0-0.031) Neutrophils # 3.7 10^3/ul (1.6-7.5) Lymphocytes # 1.9 10^3/ul (0.8-2.9) Monocytes # 0.7 10^3/ul (0.3-0.9) Eosinophils # 0.1 10^3/ul (0.0-0.5) Basophils # 0.0 10^3/ul (0.0-0.1) Nucleated Red Blood Cells # 0.0 10^3/ul (0.0-0.0) Sodium Level 142 mmol/L (135-144) Potassium Level 4.9 mmol/L (3.5-5.1) Chloride Level 106 mmol/L (97-110) Carbon Dioxide Level 30 mmol/L (21-31) Anion Gap 6 (5-13) Blood Urea Nitrogen 8 mg/dl (7-20) Creatinine 1.00 mg/dl (0.61-1.24) Est Glomerular Filtrat Rate mL/min > 60 mL/min (>60) Glucose Level 110 mg/dl (70-220) Calcium Level 8.6 mg/dl (8.4-10.2) Total Bilirubin 1.4 mg/dl (0.2-1.3) Direct Bilirubin 0.00 mg/dl (0.00-0.20) Indirect Bilirubin 1.4 mg/dl (0-1.1) Aspartate Amino Transf (AST/SGOT) 305 IU/L (15-46) Alanine Aminotransferase (ALT/SGPT) 705 IU/L (13-69) Alkaline Phosphatase 147 IU/L (42-121) Total Protein 7.2 g/dl (6.1-8.1) Albumin 3.8 g/dl (3.3-4.9) Globulin 3.40 g/dl (1.3-3.2) Albumin/Globulin Ratio 1.11 Amylase Level 92 U/L (11-123) Lipase 170 U/L (23-300) Copies To: CC: CHARLEY FELIPE MD; HADLEY GRUBBS MD ; ALAN FRAGOSO MD Sep 26, 2018 11:47
--- NOTE | 2018-09-26 11:48 | PDOCDIS ---
Discharge Instructions DIAGNOSIS Discharge Diagnosis Choledocholithiasis with obstructing common bile duct stone without pancreatitis; cute cholecystitis CONDITION [id number] Patient Condition: [id number] Good HOME CARE INSTRUCTIONS: [id number] Special Diet: Qvaac1c As a low-fat of diet as possible ACTIVITY: [id number] Activity Restrictions: [id number] No Restrictions FOLLOW UP/APPOINTMENTS Follow-up Plan Dr. Salinas in 1 to 2 weeks; Dr. Gerard in 6 weeks ALAN FRAGOSO MD Sep 26, 2018 11:48
--- NOTE | 2018-09-27 07:18 | PN ---
DATE: 09/26/2018 HISTORY OF PRESENT ILLNESS: The patient came with obstructive jaundice. ERCP was performed. Common bile duct stones were removed. Common bile duct stent was placed. Right now, the patient has no symptoms. No abdominal pain, no nausea, no vomiting. PHYSICAL EXAMINATION: HEENT: His jaundice is much less. VITAL SIGNS: Blood pressure is 138/79, temperature 97.9. LABORATORY WORKUP: Bilirubin is 1.4, AST 205, ALT 705, alkaline phosphatase 147. CLINICAL IMPRESSION: The patient is presenting with history of cholangitis, obstructive jaundice. 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 Stones were removed from the common bile duct. Common bile duct stent was placed. He also has gallstones. PLAN: I recommend laparoscopic cholecystectomy as per the discretion of the primary doctor. Once again, doctor, thank you for this consultation. Dictated By: CHARLEY DIAMOND MD NC/NTS Conf#: [id number] DID#: [id number] CC: BALDEV CHAUDHARY MD; HADLEY GRUBBS MD;*EndCC*
--- NOTE | 2018-09-27 07:38 | PN ---
DATE: 09/25/2018 SUBJECTIVE: The patient at this time has no significant complaints. The patient underwent ERCP and removal of the common bile duct stone yesterday. PHYSICAL EXAMINATION: GENERAL: The patient is alert. VITAL SIGNS: Afebrile, blood pressure 117/75, pulse is 76. ABDOMEN: Soft, nontender. LABORATORY WORKUP: WBC 8600. The bilirubin is down to 2.9 from 5.6. CLINICAL IMPRESSION: Status post ERCP, removal of common bile duct stones and placement of a CBD evonne nt. PLAN: At this time, proceed with laparoscopic cholecystectomy as per the surgeon. Dictated By: CHARLEY DIAMOND MD NC/NTS Conf#: [id number] DID#: [id number] CC: HADLEY GRUBBS MD; BALDEV CHAUDHARY MD;*EndCC*
== END 2018-09-26 14:00 | disposition home or self-care (01) | DRG 446 ==
LOC: FTE 16:41 → MS1 19:11
PROVIDERS: ADMIT Family Medicine; ATTEND Family Medicine
PROC: 0F798DZ Dilation of Common Bile Duct with Intraluminal Device, Via Natural or Artificial Opening Endoscopic (ICD-10-PCS; 2018-09-24)
PROC: 0FC98ZZ Extirpation of Matter from Common Bile Duct, Via Natural or Artificial Opening Endoscopic (ICD-10-PCS; principal; 2018-09-24 19:00)
DX: K80.63 Calculus of gallbladder and bile duct with acute cholecystitis with obstruction (principal); F17.200 Nicotine dependence, unspecified, uncomplicated
CPT/HCPCS: 36415; 74330; 76705; 80053; 80061; 80307; 81003; 82150; 83036; 83690; 83735; 84443; 85025; 85610; 85730; 86704; 86709; 86803; 87081; 87340; 96374; C2617; J2250; J7030

== ENCOUNTER 2018-09-28 00:35 | Inpatient (IN) | payer BC ==
[~2018-09-28] VITALS: Ht 175.3 cm; Wt 88.8 kg
--- NOTE | 2018-09-28 01:31 | ERD ---
ER Documentation Chief Complaint Chief Complaint mid abd pain since 10:30pm, s/p ERCP thursday. denies n/v/d no fever ROS All systems reviewed and are negative except as per history of present illness. Medications Home Meds No Active Prescriptions or Reported Meds Allergies Allergies: Coded Allergies: No Known Allergy (Unverified , 09/28/18) PMhx/Soc History of Surgery: Yes (ERCP) Anesthesia Reaction: No Hx Neurological Disorder: No Hx Respiratory Disorders: No Hx Cardiac Disorders: No Hx Psychiatric Problems: No Hx Miscellaneous Medical Probl: Yes (choledocolithiasis) Hx Alcohol Use: No Hx Substance Use: No Hx Tobacco Use: No Smoking Status: Never smoker Physical Exam Vitals Vital Signs Date Temp Pulse Resp B/P (MAP) Pulse Ox O2 O2 Flow FiO2 Time Delivery Rate 09/28/18 98.2 70 20 137/78 100 00:37 (97) Physical Exam Const: No acute distress Head: Atraumatic Eyes: Normal Conjunctiva ENT: Normal External Ears, Nose and Mouth. Neck: Full range of motion. No meningismus. Resp: Clear to auscultation bilaterally Cardio: Regular rate and rhythm, no murmurs Abd: Soft, non tender, non distended. Normal bowel sounds Skin: No petechiae or rashes Back: No midline or flank tenderness Ext: No cyanosis, or edema Neur: Awake and alert Psych: Normal Mood and Affect MAGDA MCCANN MD Sep 28, 2018 01:31
[2018-09-28] MEDS ORDERED: ONDANSETRON 4 MG INJ IV STA (01:35)
[2018-09-28] MEDS ORDERED: SOD CHLORIDE 0.9% 1,000 ML IV STA (01:35)
[2018-09-28] MEDS ORDERED: morphine 4 MG/ML VIAL IV STA (01:35)
[2018-09-28] MEDS ORDERED: ACET-141 PO (02:40)
[2018-09-28] MEDS ORDERED: PIPER-TAZO 3.375 GM IV (PMX) 100 ML IVPB ONE (03:30)
[2018-09-28] MEDS ORDERED: SOD CHLORIDE 0.9% 1,000 ML IV SCH (04:05)
[2018-09-28] MEDS ORDERED: LORAZEPAM 2 MG INJ IV PRN (04:30)
[2018-09-28] MEDS ORDERED: ALBUTEROL/IPRATROPIUM (NEB) 3 ML AMP HHN PRN (04:30)
[2018-09-28] MEDS ORDERED: HYDROCODONE/APAP (5/325) TAB PO PRN (04:30)
[2018-09-28] MEDS ORDERED: NACL 0.9% 3 ML SYG IV SCH (04:30)
[2018-09-28] MEDS ORDERED: hydrALAzine 20 MG INJ IV PRN (04:30)
[2018-09-28] MEDS ORDERED: morphine 2 MG INJ IV PRN (04:30)
[2018-09-28] MEDS ORDERED: VANCOMYCIN IV PER PHARMACY XX SCH (04:30)
[2018-09-28] MEDS ORDERED: NITROGLYCERIN (SL) 0.4 MG TAB SL PRN (04:30)
[2018-09-28] MEDS ORDERED: MAGNESIUM HYDROXIDE 30ML CUP PO PRN (04:30)
[2018-09-28] MEDS ORDERED: DOCUSATE SODIUM 100 MG CAP PO PRN (04:30)
[2018-09-28] MEDS ORDERED: ONDANSETRON 4 MG INJ IV PRN (04:30)
[2018-09-28] MEDS: PIPER-TAZO 3.375 GM IV (PMX) 100 ML IVPB SCH ×3 (04:32→18:39)
[2018-09-28 04:34] VITALS: BP 138/88; PULSE 91; RESP 18
[2018-09-28 04:37] VITALS: Ht 175.3 cm; Wt 88.8 kg
--- NOTE | 2018-09-28 07:44 | HP ---
DATE OF ADMISSION: 09/28/2018 CHIEF COMPLAINT: Epigastric pain. HISTORY OF PRESENT ILLNESS: A 38-year-old male with past medical history of recent ERCP with stent p lacement performed a few days ago. The patient actually was discharged from [facility] 2 da ys ago. The patient did well for a day and then last night around 10:30 p.m., he started experiencin g abdominal pain. He described as epigastric in location. He denied any nausea, vomiting, no fevers or chills, no diarrhea or constipation. No upper or lower GI bleeding. The patient was in the proc ess of getting a laparoscopic cholecystectomy scheduled to be performed by surgeon as an outpatient, but became concerned with his abdominal pain symptoms and decided to come into the ER. When he came in today, he was found with elevated AST and ALT levels slightly higher than when he left the [facility] 48 hours ago. His bilirubins both total and direct, however, are within normal limits. The patien t also had a slight leukocytosis of 12.0 and the ER team contacted the surgeon who will come and eval uate the patient later today. GI team is also made aware. PAST MEDICAL HISTORY: As stated above. ALLERGIES: NO KNOWN DRUG ALLERGIES. HOME MEDICATIONS: Tylenol 1000 mg q.6 hours p.r.n. PAST SURGICAL HISTORY: Other than the ERCP with stent placement a few days ago, no other past surgic al history. SOCIAL HISTORY: Negative for smoking, drinking, or IV drug abuse. FAMILY HISTORY: Noncontributory. PHYSICAL EXAMINATION: VITAL SIGNS: T-max 98.2, pulse is 70 to 91, respirations 18 to 20, blood pressure is 138/88, satting at 98% room air. GENERAL: The patient is lying in bed, answering questions appropriately, in no acute distress. HEENT: Pupils equal, round, react to light. Extraocular muscles intact. NECK: Supple, no thyromegaly. LUNGS: Clear to auscultation bilaterally. CARDIOVASCULAR: S1, S2 heard. No rubs or gallops. ABDOMEN: Soft, slight tenderness to palpation in epigastric area. No rebound or guarding. Normal b owel sounds. MUSCULOSKELETAL: No lower extremity edema bilaterally. NEUROLOGIC: No focal deficits. LABORATORIES: Again, WBC 12.0, the rest of the CBC is normal. We mentioned the basic metabolic pane l is normal. Again, the total and direct bilirubins are normal. The slightly high at 1.2. Th e AST is 364, ALT is 913, alkaline phosphatase is 222. IMAGING: The patient had a gallbladder ultrasound today that shows distended gallbladder containing multiple stones with wall thickening measuring 5.16 mm. This wall thickening represents interval dez nge relative to the examination of 09/23/2018. Possible signs of acute cholecystitis. Recommend cor relation with hepatobiliary imaging to assess for this. ASSESSMENT AND PLAN: A 38-year-old male coming in with abdominal pain with signs of possible acute c holecystitis with recent ERCP placement, history of gallstones. 1. Abdominal pain. Again, with elevated LFTs, there is concern of either acute cholecystitis or pos sible nonpositional or repositioning of the biliary stent. Again, bilirubins are normal. Admit the patient. Keep him n.p.o. Give him IV fluids, antiemetics. Check TSH, A1c, lipid panel. Trend his liver enzymes. Again, GI and surgery consults have been obtained. 3. Gastrointestinal prophylaxis, Pepcid. 4. Deep venous thrombosis prophylaxis, heparin subQ. Dictated By: NICA GARDNER/BRIELLE Conf#: [id number] DID#: [id number]
[2018-09-28] MEDS ORDERED: VANCOMYCIN HCL 1.75 GM in SOD CHLORIDE 0.9% 500 ML IVPB SCH (08:00)
[2018-09-28] MEDS: FAMOTIDINE 20 MG INJ IV SCH (08:40)
[2018-09-28] MEDS: HEPARIN 5,000 UNIT/1 ML VIAL SC SCH ×2 (08:47→20:55)
[2018-09-28] MEDS: LACTATED RINGER'S 1,000 ML IV SCH (12:32)
--- NOTE | 2018-09-28 12:34 | PN ---
Date/Time of Note Date/Time of Note DATE: 09/28/18 TIME: 12:33 Assessment/Plan VTE Prophylaxis SCD applied (from Nsg): Yes Pharmacological prophylaxis: heparin Lines/Catheters IV Catheter Type (from Nrsg): Saline Lock Assessment/Plan Hospital Course 38 yo male with choledocholithiasis who underwent ERCP w stent last week, now returns with RUQ pain and found to have transaminitis, GB distension - Picture concerning for occluded stent. Consideration of repeat ERCP per Dr Felipe - Dr Garcia from general surgery also on board - IV fluids - dc vanco, continue zosyn - pain control Result Diagram: 09/28/18 0450 09/28/18 0150 Results 24hrs Laboratory Tests Test 09/28/18 01:50 09/28/18 04:50 09/28/18 10:27 White Blood Count 13.7 #H 12.0 H Red Blood Count 5.35 5.47 Hemoglobin 15.4 15.7 Hematocrit 46.5 47.8 Mean Corpuscular Volume 86.9 87.4 Mean Corpuscular Hemoglobin 28.8 L 28.7 L Mean Corpuscular Hemoglobin Concent 33.1 32.8 Red Cell Distribution Width 13.2 13.2 Platelet Count 330 325 Mean Platelet Volume 9.5 9.6 Immature Granulocytes % 0.400 0.500 H Neutrophils % 85.3 H 88.4 H Lymphocytes % 8.5 L 7.1 L Monocytes % 5.0 3.5 Eosinophils % 0.5 0.2 Basophils % 0.3 0.3 Nucleated Red Blood Cells % 0.0 0.0 Immature Granulocytes # 0.060 H 0.060 H Neutrophils # 11.7 H 10.6 H Lymphocytes # 1.2 0.9 Monocytes # 0.7 0.4 Eosinophils # 0.1 0.0 Basophils # 0.0 0.0 Nucleated Red Blood Cells # 0.0 0.0 Sodium Level 141 Potassium Level 4.0 Chloride Level 101 Carbon Dioxide Level 29 Anion Gap 11 Blood Urea Nitrogen 16 Creatinine 0.92 Est Glomerular Filtrat Rate mL/min > 60 Glucose Level 144 Calcium Level 9.1 Total Bilirubin 1.2 1.7 H Direct Bilirubin 0.00 0.00 Indirect Bilirubin 1.2 H 1.7 H Aspartate Amino Transf (AST/SGOT) 364 H 325 H Alanine Aminotransferase (ALT/SGPT) 913 H 916 H Alkaline Phosphatase 222 #H 208 H Total Protein 8.7 H 7.9 Albumin 4.5 4.5 Globulin 4.20 H Albumin/Globulin Ratio 1.07 Lipase 119 106 Prothrombin Time 12.5 Prothrombin Time Ratio 1.0 INR International Normalized Ratio 0.92 Activated Partial Thromboplast Time 33.5 Lactic Acid Level 1.5 0.7 Free Thyroxine 1.13 Subjective 24 Hr Interval Summary Free Text/Dictation Patient comfortable No pain Exam/Review of Systems Exam Vitals Vital Signs Date Temp Pulse Resp B/P (MAP) Pulse Ox O2 O2 Flow FiO2 Time Delivery Rate 09/28/18 98.0 91 18 138/88 98 04:34 (105) Intake and Output 09/27/18 09/27/18 09/28/18 1515:00 23:00 07:00 IntakeIntake Total 1100 ml BalanceBalance 1100 ml Constitutional: alert, oriented, well developed Psych: no complaints, nl mood/affect Head: normocephalic, atraumatic Eyes: nl conjunctiva, EOMI, nl lids, nl sclera, PERRL ENMT: nl external ears & nose, nl lips & teeth, nl nasal mucosa & septum Neck: supple, non-tender Respiratory: clear to auscultation, normal air movement Cardiovascular: regular rate and rhythm, nl pulses Gastrointestinal: soft, nl liver, spleen, non-tender Musculoskeletal: nl extremities to inspection, nl gait and stance Extremities: normal pulses 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, nl mental status, nl speech, nl strength Skin: nl turgor; No rash or lesions Lymph: nl lymph nodes Results Results 24hrs Laboratory Tests Test 09/28/18 01:50 09/28/18 04:50 09/28/18 10:27 White Blood Count 13.7 #H 12.0 H Red Blood Count 5.35 5.47 Hemoglobin 15.4 15.7 Hematocrit 46.5 47.8 Mean Corpuscular Volume 86.9 87.4 Mean Corpuscular Hemoglobin 28.8 L 28.7 L Mean Corpuscular Hemoglobin Concent 33.1 32.8 Red Cell Distribution Width 13.2 13.2 Platelet Count 330 325 Mean Platelet Volume 9.5 9.6 Immature Granulocytes % 0.400 0.500 H Neutrophils % 85.3 H 88.4 H Lymphocytes % 8.5 L 7.1 L Monocytes % 5.0 3.5 Eosinophils % 0.5 0.2 Basophils % 0.3 0.3 Nucleated Red Blood Cells % 0.0 0.0 Immature Granulocytes # 0.060 H 0.060 H Neutrophils # 11.7 H 10.6 H Lymphocytes # 1.2 0.9 Monocytes # 0.7 0.4 Eosinophils # 0.1 0.0 Basophils # 0.0 0.0 Nucleated Red Blood Cells # 0.0 0.0 Sodium Level 141 Potassium Level 4.0 Chloride Level 101 Carbon Dioxide Level 29 Anion Gap 11 Blood Urea Nitrogen 16 Creatinine 0.92 Est Glomerular Filtrat Rate mL/min > 60 Glucose Level 144 Calcium Level 9.1 Total Bilirubin 1.2 1.7 H Direct Bilirubin 0.00 0.00 Indirect Bilirubin 1.2 H 1.7 H Aspartate Amino Transf (AST/SGOT) 364 H 325 H Alanine Aminotransferase (ALT/SGPT) 913 H 916 H Alkaline Phosphatase 222 #H 208 H Total Protein 8.7 H 7.9 Albumin 4.5 4.5 Globulin 4.20 H Albumin/Globulin Ratio 1.07 Lipase 119 106 Prothrombin Time 12.5 Prothrombin Time Ratio 1.0 INR International Normalized Ratio 0.92 Activated Partial Thromboplast Time 33.5 Lactic Acid Level 1.5 0.7 Free Thyroxine 1.13 Medications Medication Current Medications IV Flush (NS 3 ml) 3 ml PER PROTOCOL IV ; Start 09/28/18 at 04:30 Ondansetron HCl (Zofran Inj) 4 mg Q6H PRN IV NAUSEA/VOMITING; Start 09/28/18 at 04:30 Acetaminophen (Tylenol Tab) 650 mg Q6H PRN PO .PAIN 1-3 OR TEMP; Start 09/28/18 at 04:30 Acetaminophen/ Hydrocodone Bitart ([place] (5/325)) 1 tab Q6H PRN PO .MOD PAIN 4- 6; Start 09/28/18 at 04:30 Morphine Sulfate (morphine) 2 mg Q4H PRN IV .SEVERE PAIN 7-10; Start 09/28/18 at 04:30 Docusate Sodium (Colace) 100 mg Q12H PRN PO .CONSTIPATION; Start 09/28/18 at 04:30 Magnesium Hydroxide (Milk Of Mag) 30 ml DAILY PRN PO .CONSTIPATION; Start 09/28/18 at 04:30 Famotidine (Pepcid Iv) 20 mg DAILY IV Last administered on 09/28/18at 08:40; Admin Dose 20 MG; Start 09/28/18 at 09:00 Heparin Sodium (Porcine) (Heparin (5000 Units/1ml)) 5,000 unit Q12 SC Last administered on 09/28/18at 08:47; Admin Dose 5,000 UNIT; Start 09/28/18 at 09:00 Lorazepam (Ativan) 0.5 mg Q6H PRN IV ANXIETY; Start 09/28/18 at 04:30 Albuterol/ Ipratropium (Duoneb) 3 ml Q4H RESP THERAPY PRN HHN SHORTNESS OF BREATH; Start 09/28/18 at 04:30 Piperacillin Sod/ Tazobactam Sod 100 ml @ 200 mls/hr Q6 IVPB Last administered on 09/28/18at 11:45; Admin Dose 200 MLS/HR; Start 09/28/18 at 06:00 Hydralazine HCl (Apresoline) 10 mg Q6H PRN IV ELEVATED BLOOD PRESSURE; Start 09/28/18 at 04:30 Nitroglycerin (Nitroglycerin (Sl Tab) 0.4 Mg) 1 tab Q5M PRN SL ANGINA; Start 09/28/18 at 04:30 Lactated Ringer's 1,000 ml @ 75 mls/hr [id number] IV ; Start 09/28/18 at 13:00 JASEN CISNEROS MD Sep 28, 2018 12:34
[2018-09-28 14:33] VITALS: BP 118/71; PULSE 97; RESP 18
[2018-09-28] MEDS: ACETAMINOPHEN 325 MG TAB PO PRN (15:24)
[2018-09-28] MEDS ORDERED: VANCOMYCIN 1 GM 250 ML IVPB SCH (16:00)
--- NOTE | 2018-09-28 19:25 | CONS ---
DATE OF ADMISSION: 09/28/2018 DATE OF CONSULTATION: TYPE OF CONSULTATION: Gastroenterology. Dear Dr. Kaba: Thank you for asking me to see Mr. Lockhart in GI consultation. As you know, he is a 38-year-old [place] gentleman apparently is admitted to the hospital at this time because of abdominal pain. He w as admitted on 09/23/2018 with abdominal pain and obstructive jaundice. ERCP was done. Common bile duct stones were removed and a CBD stent was placed. He went home after the ERCP on Thursday. Apparen tly, he was doing fine on Thursday and Thursday and he was doing fine also on Thursday, but Thursday night after dinner, he developed abdominal pain which was excruciating pain, hence he came to the hospital on that night. REVIEW OF SYSTEM: Unremarkable. PHYSICAL EXAMINATION: GENERAL: The patient is a 38-year-old gentleman who at this time is alert, well built. VITAL SIGNS: He does have a temperature of 101.2, blood pressure 118/71. CARDIOVASCULAR: Normal heart sounds. RESPIRATORY: Normal breath sounds. ABDOMEN: Showed unremarkable findings. LABORATORY WORKUP: The WBC is 5470, hemoglobin 15.7, neutrophils 88, lymphocytes 7. The bilirubin 1.7, AST is 325, ALT is 916, alkaline phosphatase 208. He had abnormal liver functions last admission which apparently were improved before he went home. Ultrasound of the abdomen today showed evidence of distended gallbladder containing multiple stones w ith wall thickening measuring 5.16 mm. Wall thickening represents interval changes ____ examination on 09/23/2018. They recommended hepatobiliary scan to rule out acute cholecystitis. Unchanged dilat ed common bile duct measuring 7.7 mm is noted. CLINICAL IMPRESSION: The patient has evidence of cholelithiasis, cholecystitis on the ultrasound fin dings with dilated common bile duct of 7.7 mm. In view of the presence of abnormal liver functions, it is quite possible that he has cholangitis due to probably clogged stent or recurrence of the stone s in the common bile duct. Sometimes he could have a compression of the common bile duct by the dist ended gallbladder. It is called Mirizzi syndrome. PLAN: At this time, I would like to recommend to obtain MRI and CT scan of the abdomen and then we w ill proceed further. We will discuss with the surgeon. Once again, doctor, thank you for this consultation. Dictated By: CHARLEY SPRINGER/BRIELLE Conf#: [id number] DID#: [id number] CC: JASEN CISNEROS MD;*EndCC*
[2018-09-28 19:43] VITALS: BP 117/70; PULSE 84; RESP 16
[2018-09-29] VITALS (16 sets, daily range): BP systolic 108–140; BP diastolic 66–87; PULSE 70–101; RESP 14–20
[2018-09-29] MEDS: PIPER-TAZO 3.375 GM IV (PMX) 100 ML IVPB SCH ×5 (00:34→23:49)
[2018-09-29] MEDS: LACTATED RINGER'S 1,000 ML IV SCH ×3 (03:53→23:45)
[2018-09-29] MEDS: ACETAMINOPHEN 325 MG TAB PO PRN (06:24)
--- NOTE | 2018-09-29 07:29 | PN ---
Date/Time of Note Date/Time of Note DATE: 09/29/18 TIME: 07:29 Assessment/Plan VTE Prophylaxis Risk score (from Ns)>0 risk: 0 SCD applied (from Ns): Yes Pharmacological prophylaxis: NA/contraindicated Pharm contraindication: low risk/ambulating Lines/Catheters IV [facility]from [facility] Saline Lock Assessment/Plan Hospital Course SUBJECTIVE: Denies any abdominal pain. Denies any nausea vomiting. OBJECTIVE: Physical Exam General: Adequately build 38 year-old male lying in bed in no apparent distress. HEENT: Normocephalic, atraumatic. Eyes: Anicteric sclerae, conjunctivae clear. ENT: Nasal septum midline, oral mucosa moist. Neck supple, no JVD noticed. Respiratory: Bilaterally clear breath sounds. No use of accessory muscles of respiration. No adventitious breath sounds. Cardiovascular: S1, S2 heard. No murmurs or gallops. Abdomen: Soft, nontender, and nondistended. Bowel sounds positive in all 4 quadrants. Genitourinary: Deferred. Extremities: No cyanosis, no clubbing, no edema. Peripheral pulses palpable. Neurologic: Cranial nerves II through XII grossly intact. The patient is awake, alert, and oriented. Skin: Normal skin turgor. No skin rashes. Labs & Vitals per chart ASSESSMENT & PLAN 38-year-old male with no past medical history who recently had an ERCP with sphincterotomy on 09/24/2018 for choledocholithiasis and was discharged home on 09/26/2018. The patient returned back to the emergency room on 09/28/2018 with complaint of abdominal pain with ultrasound showing distended gallbladder containing multiple stones with wall thickening, findings concerning for acute cholecystitis, who was admitted to inpatient setting for further treatment and evaluation. 1. Symptomatic cholelithiasis; possible underlying acute cholecystitis. Continue antimicrobials including coverage for anaerobes. General surgery has been consulted. Continue antimicrobials. 2. History of choledocholithiasis; status post ERCP with sphincterotomy on 09/24/2018. Patient is scheduled for another ERCP today to assess the biliary tree. 3. Transaminitis. Probably secondary to #1 and #2. Management as per #1 and #2. 4. Fluids, electrolytes, and nutrition. N.p.o. except for medications. Continue IV fluids. 5. DVT prophylaxis Bilateral SCDs. 6. Plan. Continue antimicrobials. Continue n.p.o. Await ERCP. Await surgical evaluation. The patient was seen in collaboration with Dr. Reeder. Result Diagram: 09/29/18 0432 09/29/18 0432 Results 24hrs Laboratory Tests Test 09/28/18 10:27 09/28/18 16:13 09/29/18 04:32 Lactic Acid Level 0.7 1.1 White Blood Count 6.2 # Red Blood Count 5.11 Hemoglobin 14.7 Hematocrit 44.3 Mean Corpuscular Volume 86.7 Mean Corpuscular Hemoglobin 28.8 L Mean Corpuscular Hemoglobin Concent 33.2 Red Cell Distribution Width 13.3 Platelet Count 301 Mean Platelet Volume 9.8 Immature Granulocytes % 0.600 H Neutrophils % 74.9 Lymphocytes % 14.8 L Monocytes % 9.2 Eosinophils % 0.2 Basophils % 0.3 Nucleated Red Blood Cells % 0.0 Immature Granulocytes # 0.040 H Neutrophils # 4.7 Lymphocytes # 0.9 Monocytes # 0.6 Eosinophils # 0.0 Basophils # 0.0 Nucleated Red Blood Cells # 0.0 Sodium Level 138 Potassium Level 4.3 Chloride Level 101 Carbon Dioxide Level 27 Anion Gap 10 Blood Urea Nitrogen 14 Creatinine 1.04 Est Glomerular Filtrat Rate mL/min > 60 Glucose Level 93 # Hemoglobin A1c 5.3 Calcium Level 8.8 Phosphorus Level 3.4 Magnesium Level 2.0 Total Bilirubin 1.2 Direct Bilirubin 0.00 Indirect Bilirubin 1.2 H Aspartate Amino Transf (AST/SGOT) 166 H Alanine Aminotransferase (ALT/SGPT) 616 H Alkaline Phosphatase 149 H Total Protein 7.3 Albumin 3.9 Triglycerides Level 86 Cholesterol Level 145 LDL Cholesterol, Calculated 106 HDL Cholesterol 22 L Cholesterol/HDL Ratio 6.5 Lipase 103 Thyroid Stimulating Hormone (TSH) 0.756 Exam/Review of Systems Exam Vitals Vital Signs Date Temp Pulse Resp B/P (MAP) Pulse Ox O2 O2 Flow FiO2 Time Delivery Rate 09/29/18 98.8 95 18 117/71 100 Room Air 01:47 (86) Intake and Output 09/28/18 09/28/18 09/29/18 1515:00 23:00 07:00 IntakeIntake Total 1000 ml 475 ml 1225 ml BalanceBalance 1000 ml 475 ml 1225 ml Results Results 24hrs Laboratory Tests Test 09/28/18 10:27 09/28/18 16:13 6/5/19 04:32 Lactic Acid Level 0.7 1.1 White Blood Count 6.2 # Red Blood Count 5.11 Hemoglobin 14.7 Hematocrit 44.3 Mean Corpuscular Volume 86.7 Mean Corpuscular Hemoglobin 28.8 L Mean Corpuscular Hemoglobin Concent 33.2 Red Cell Distribution Width 13.3 Platelet Count 301 Mean Platelet Volume 9.8 Immature Granulocytes % 0.600 H Neutrophils % 74.9 Lymphocytes % 14.8 L Monocytes % 9.2 Eosinophils % 0.2 Basophils % 0.3 Nucleated Red Blood Cells % 0.0 Immature Granulocytes # 0.040 H Neutrophils # 4.7 Lymphocytes # 0.9 Monocytes # 0.6 Eosinophils # 0.0 Basophils # 0.0 Nucleated Red Blood Cells # 0.0 Sodium Level 138 Potassium Level 4.3 Chloride Level 101 Carbon Dioxide Level 27 Anion Gap 10 Blood Urea Nitrogen 14 Creatinine 1.04 Est Glomerular Filtrat Rate mL/min > 60 Glucose Level 93 # Hemoglobin A1c 5.3 Calcium Level 8.8 Phosphorus Level 3.4 Magnesium Level 2.0 Total Bilirubin 1.2 Direct Bilirubin 0.00 Indirect Bilirubin 1.2 H Aspartate Amino Transf (AST/SGOT) 166 H Alanine Aminotransferase (ALT/SGPT) 616 H Alkaline Phosphatase 149 H Total Protein 7.3 Albumin 3.9 Triglycerides Level 86 Cholesterol Level 145 LDL Cholesterol, Calculated 106 HDL Cholesterol 22 L Cholesterol/HDL Ratio 6.5 Lipase 103 Thyroid Stimulating Hormone (TSH) 0.756 Medications Medication Current Medications IV Flush (NS 3 ml) 3 ml PER PROTOCOL IV ; Start 09/28/18 at 04:30 Ondansetron HCl (Zofran Inj) 4 mg Q6H PRN IV NAUSEA/VOMITING; Start 09/28/18 at 04:30 Acetaminophen (Tylenol Tab) 650 mg Q6H PRN PO .PAIN 1-3 OR TEMP Last administered on 09/29/18at 06:24; Admin Dose 650 MG; Start 09/28/18 at 04:30 Acetaminophen/ Hydrocodone Bitart ([place] (5/325)) 1 tab Q6H PRN PO .MOD PAIN 4- 6; Start 09/28/18 at 04:30 Morphine Sulfate (morphine) 2 mg Q4H PRN IV .SEVERE PAIN 7-10; Start 09/28/18 at 04:30 Docusate Sodium (Colace) 100 mg Q12H PRN PO .CONSTIPATION; Start 09/28/18 at 04:30 Magnesium Hydroxide (Milk Of Mag) 30 ml DAILY PRN PO .CONSTIPATION; Start 09/28/18 at 04:30 Famotidine (Pepcid Iv) 20 mg DAILY IV Last administered on 09/28/18at 08:40; Admin Dose 20 MG; Start 09/28/18 at 09:00 Heparin Sodium (Porcine) (Heparin (5000 Units/1ml)) 5,000 unit Q12 SC Last administered on 09/28/18at 20:55; Admin Dose 5,000 UNIT; Start 09/28/18 at 09:00 Lorazepam (Ativan) 0.5 mg Q6H PRN IV ANXIETY; Start 09/28/18 at 04:30 Albuterol/ Ipratropium (Duoneb) 3 ml Q4H RESP THERAPY PRN HHN SHORTNESS OF BREATH; Start 09/28/18 at 04:30 Piperacillin Sod/ Tazobactam Sod 100 ml @ 200 mls/hr Q6 IVPB Last administered on 09/29/18at 05:46; Admin Dose 200 MLS/HR; Start 09/28/18 at 06:00 Hydralazine HCl (Apresoline) 10 mg Q6H PRN IV ELEVATED BLOOD PRESSURE; Start 09/28/18 at 04:30 Nitroglycerin (Nitroglycerin (Sl Tab) 0.4 Mg) 1 tab Q5M PRN SL ANGINA; Start 09/28/18 at 04:30 Lactated Ringer's 1,000 ml @ 75 mls/hr [id number] IV Last administered on 09/29/18at 03:53; Admin Dose 75 MLS/HR; Start 09/28/18 at 13:00 GALE SHEA NP Sep 29, 2018 07:29
[2018-09-29] MEDS: HEPARIN 5,000 UNIT/1 ML VIAL SC SCH ×2 (09:00→21:39)
[2018-09-29] MEDS: FAMOTIDINE 20 MG INJ IV SCH (09:01)
--- NOTE | 2018-09-29 18:18 | PREAC ---
Date/Time of Note Date/Time of Note DATE: 09/29/18 TIME: 18:17 Anesthesia Eval and Record Evaluation Time Pre-Procedure Interview DATE: 09/29/18 TIME: 18:17 Age 38 Sex male NPO: 8 hrs Preoperative diagnosis CHOLANGITIS Planned procedure ERCP, STENT REMOVAL Past Medical History Past Medical History: None Surgery & Anesthesia Issues No known issue Meds Anticoagulation: No Beta Iglesia within 24 hr: No Reason Beta Iglesia not given: Pt. not on B-Iglesia Reported Medications Acetaminophen* (Acetaminophen*) 500 MG Extra Strength Tablet, 1000 MG PO Q6H PRN for PAIN AND OR ELEVATED TEMP, TAB 09/28/18 Current Medications IV Flush (NS 3 ml) 3 ml PER PROTOCOL IV ; Start 09/28/18 at 04:30 Ondansetron HCl (Zofran Inj) 4 mg Q6H PRN IV NAUSEA/VOMITING; Start 09/28/18 at 04:30 Acetaminophen (Tylenol Tab) 650 mg Q6H PRN PO .PAIN 1-3 OR TEMP Last administered on 09/29/18at 06:24; Admin Dose 650 MG; Start 09/28/18 at 04:30 Acetaminophen/ Hydrocodone Bitart ([place] (5/325)) 1 tab Q6H PRN PO .MOD PAIN 4- 6; Start 09/28/18 at 04:30 Morphine Sulfate (morphine) 2 mg Q4H PRN IV .SEVERE PAIN 7-10; Start 09/28/18 at 04:30 Docusate Sodium (Colace) 100 mg Q12H PRN PO .CONSTIPATION; Start 09/28/18 at 04:30 Magnesium Hydroxide (Milk Of Mag) 30 ml DAILY PRN PO .CONSTIPATION; Start 09/28/18 at 04:30 Famotidine (Pepcid Iv) 20 mg DAILY IV Last administered on 09/29/18at 09:01; Admin Dose 20 MG; Start 09/28/18 at 09:00 Heparin Sodium (Porcine) (Heparin (5000 Units/1ml)) 5,000 unit Q12 SC Last administered on 09/28/18at 20:55; Admin Dose 5,000 UNIT; Start 09/28/18 at 09:00 Lorazepam (Ativan) 0.5 mg Q6H PRN IV ANXIETY; Start 09/28/18 at 04:30 Albuterol/ Ipratropium (Duoneb) 3 ml Q4H RESP THERAPY PRN HHN SHORTNESS OF BREATH; Start 09/28/18 at 04:30 Piperacillin Sod/ Tazobactam Sod 100 ml @ 200 mls/hr Q6 IVPB Last administered on 09/29/18at 17:33; Admin Dose 200 MLS/HR; Start 09/28/18 at 06:00 Hydralazine HCl (Apresoline) 10 mg Q6H PRN IV ELEVATED BLOOD PRESSURE; Start 09/28/18 at 04:30 Nitroglycerin (Nitroglycerin (Sl Tab) 0.4 Mg) 1 tab Q5M PRN SL ANGINA; Start 09/28/18 at 04:30 Lactated Ringer's 1,000 ml @ 75 mls/hr [id number] IV Last administered on 09/29/18at 03:53; Admin Dose 75 MLS/HR; Start 09/28/18 at 13:00 Meds reviewed: Yes Allergies Coded Allergies: No Known Allergy (Unverified , 09/28/18) Allergies Reviewed: Yes Labs/Studies Labs Reviewed: Reviewed by anesthesiologist Result Diagram: 09/29/18 0432 09/29/18 0432 Laboratory Tests 09/29/18 04:32 test: N/A Pre-procedure Exam Last vitals Vital Signs Date Temp Pulse Resp B/P (MAP) Pulse Ox O2 O2 Flow FiO2 Time Delivery Rate 09/29/18 99.7 70 15 123/80 100 Room Air 13:27 (94) Airway: Adequate mouth opening, Adequate thyromental dist Mallampati: Mallampati II Teeth: Normal Lung: Normal Heart: Normal ASA Physical Status ASA physical status: 2 Emergency: None Planned Anesthetic General/MAC: ETT Planned Pain Management Parenteral pain med Pre-operative Attestations Prior to commencing anesthesia and surgery, the patient was re-evaluated, there was verification of: *The patient's identity *The results of appropriate recent lab work and preoperative vital signs *The above evaluation not changing prior to induction *Anesthetic plan, risk benefits, alternative and complications discussed with patient/family; questions answered; patient/family understands, accepts and wishes to proceed. Maxwell Arias M.D. Sep 29, 2018 18:18
[2018-09-29] MEDS ORDERED: ONDANSETRON 4 MG INJ ONE (18:21)
[2018-09-29] MEDS ORDERED: PROPOFOL 20 ML ONE (18:21)
[2018-09-29] MEDS ORDERED: FENTAnyl 50 MCG/ML VIAL ONE (18:21)
[2018-09-29] MEDS ORDERED: ROCURONIUM 50 MG INJ ONE (18:21)
[2018-09-29] MEDS ORDERED: DEXAMETHASONE 4 MG/ML 5 ML INJ ONE (18:21)
[2018-09-29] MEDS ORDERED: NEOSTIGMINE 3 MG/3 ML SYRINGE ONE (18:21)
[2018-09-29] MEDS ORDERED: CEFAZOLIN 1 GM INJ ONE (18:21)
[2018-09-29] MEDS ORDERED: GLYCOPYRROLATE 0.4 MG INJ ONE (18:21)
[2018-09-29] MEDS ORDERED: MIDAZOLAM 1 MG/ML 2 ML INJ ONE (18:21)
[2018-09-29] MEDS ORDERED: MEPERIDINE 25 MG INJ IV PRN (18:30)
[2018-09-29] MEDS ORDERED: TRIMETHOBENZAMIDE 100 MG/ML VIAL IM PRN (18:30)
[2018-09-29] MEDS ORDERED: MIDAZOLAM 1 MG/ML 2 ML INJ IV PRN (18:30)
[2018-09-29] MEDS ORDERED: hydrALAzine 20 MG INJ IV PRN (18:30)
[2018-09-29] MEDS ORDERED: FENTAnyl 50 MCG/ML VIAL IV PRN ×3 (18:30)
[2018-09-29] MEDS ORDERED: LABETALOL HCL 20MG INJ IV PRN (18:30)
[2018-09-29] MEDS ORDERED: ONDANSETRON 4 MG INJ IV PRN (18:30)
[2018-09-29] MEDS ORDERED: OXYCODONE/ACETAMINOPHEN (5/325) TAB PO PRN ×2 (18:30)
[2018-09-29] MEDS ORDERED: EPHEDrine 25 MG/5 ML SYG IV PRN (18:30)
[2018-09-29] MEDS ORDERED: IPRATROPIUM (NEB) 0.5 MG/2.5 ML AMP HHN PRN (18:30)
[2018-09-29] MEDS ORDERED: DIPHENHYDRAMINE 50 MG INJ IV PRN (18:30)
[2018-09-29] MEDS ORDERED: ALBUTEROL 0.083% (NEB) 2.5 MG/3 ML AMP HHN PRN (18:30)
[2018-09-29] MEDS ORDERED: HYDROmorphONE 1 MG/5 ML IV SYRINGE IV PRN ×3 (18:30)
--- NOTE | 2018-09-29 18:32 | HPN ---
Date/Time of Note Date/Time of Note DATE: 09/29/18 TIME: 18:32 Interval H&P Admission Note Pt. seen H&P reviewed: No system changes CHARLEY DIAMOND MD Sep 29, 2018 18:32
--- NOTE | 2018-09-29 19:48 | OPR ---
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 Estimated Blood Loss: none Transfusion none Specimen none Grafts/Implants none Complications none Pt Condition Post Procedure: stable Disposition: PACU Indications cholangitis Procedure Description ercp done cbd stent exchanged CHARLEY DIAMOND MD Sep 29, 2018 19:48
--- NOTE | 2018-09-29 19:49 | PAC ---
Date/Time of Note Date/Time of Note DATE: 09/29/18 TIME: 19:49 Post-Anesthesia Notes Post-Anesthesia Note Last documented vital signs Vital Signs Date Temp Pulse Resp B/P (MAP) Pulse Ox O2 O2 Flow FiO2 Time Delivery Rate 09/29/18 99.7 70 15 123/80 100 Room Air 13:27 (94) Activity: WNL Respiratory function: WNL Cardiovascular function: WNL Mental status: Baseline Pain reasonably controlled: Yes Hydration appropriate: Yes Nausea/Vomiting absent: Yes Maxwell Arias M.D. Sep 29, 2018 19:49
--- NOTE | 2018-09-29 23:54 | GILP ---
DATE OF PROCEDURE: PROCEDURE: ERCP. Removal of a CBD stent and balloon sweeping of the common bile duct and a new CBD stent was placed. PREOPERATIVE DIAGNOSIS: The patient is presenting with history of ERCP done in the past. Common chris e duct stones were removed. Three days later, patient developed a cholangitis and he was having sign ificant fever and MRCP and CAT scan of the abdomen were not help helping to make a diagnosis of ____ for cholangitis. Hence, it is felt that he may have a clogged stent and hence this ERCP is performed to remove the stent and put a new one and then see what else is going on. POSTOPERATIVE DIAGNOSIS: Existing CBD stent was removed. No more common bile duct stones noted. No biliary leak noted. Balloon sweeping was performed. At this time, 1 x 10 x 7 [place] type of end obiliary prosthesis was inserted into the common hepatic duct across the ampulla into the duodenum. I also inserted a wire into the common hepatic duct and the proximal hepatic ducts to see if I can pu t a 7 x 7 CBD stent, but I could not advance the second 7 x 7 stent into the common hepatic duct andressa use of trouble the duct is small. Because of this, this part was abandoned and several photographs w ere obtained. The CBD stent is found to be in proper position, draining bile, and the procedure was terminated. PLAN: Recommend proceed with the laparoscopic cholecystectomy. Dictated By: CHARLEY SPRINGER/BRIELLE Conf#: [id number] DID#: [id number] CC: NICA SUAREZ;*EndCC*
[2018-09-30 02:45] VITALS: BP 100/71; PULSE 73; RESP 20
[2018-09-30] MEDS: PIPER-TAZO 3.375 GM IV (PMX) 100 ML IVPB SCH ×4 (05:42→23:35)
[2018-09-30 08:03] VITALS: BP 106/59; PULSE 68; RESP 18
--- NOTE | 2018-09-30 08:53 | PN ---
Date/Time of Note Date/Time of Note DATE: 09/30/18 TIME: 08:50 Assessment/Plan VTE Prophylaxis Risk score (from Ns)>0 risk: 0 SCD applied (from Ns): Yes Pharmacological prophylaxis: NA/contraindicated Pharm contraindication: low risk/ambulating Lines/Catheters IV [facility]from [facility] Saline Lock Urinary Cath still in place: No Assessment/Plan Hospital Course SUBJECTIVE: Denies any abdominal pain. Denies any nausea vomiting. OBJECTIVE: Physical Exam General: Adequately build 38 year-old male lying in bed in no apparent distress. HEENT: Normocephalic, atraumatic. Eyes: Anicteric sclerae, conjunctivae clear. ENT: Nasal septum midline, oral mucosa moist. Neck supple, no JVD noticed. Respiratory: Bilaterally clear breath sounds. No use of accessory muscles of respiration. No adventitious breath sounds. Cardiovascular: S1, S2 heard. No murmurs or gallops. Abdomen: Soft, nontender, and nondistended. Bowel sounds positive in all 4 quadrants. Genitourinary: Deferred. Extremities: No cyanosis, no clubbing, no edema. Peripheral pulses palpable. Neurologic: Cranial nerves II through XII grossly intact. The patient is awake, alert, and oriented. Skin: Normal skin turgor. No skin rashes. Labs & Vitals per chart ASSESSMENT & PLAN 38-year-old male with no past medical history who recently had an ERCP with sphincterotomy on 09/24/2018 for choledocholithiasis and was discharged home on 09/26/2018. The patient returned back to the emergency room on 09/28/2018 with complaint of abdominal pain with ultrasound showing distended gallbladder containing multiple stones with wall thickening, findings concerning for acute cholecystitis, who was admitted to inpatient setting for further treatment and evaluation. 1. Symptomatic cholelithiasis with underlying cholangitis. Continue antimicrobials including coverage for anaerobes. General surgery has been consulted. Continue antimicrobials. 2. History of choledocholithiasis; status post ERCP with sphincterotomy and CBD stent placement on 09/24/2018. S/P ERCP, removal of CBD stent and balloon sweeping of the CBD and placement of a new CBD stent on 09/29/2018. 3. Transaminitis. Probably secondary to #1 and #2. Management as per #1 and #2. 4. Fluids, electrolytes, and nutrition. Full liquids. Continue IV fluids. 5. DVT prophylaxis Bilateral SCDs. 6. Plan. Continue antimicrobials. Await surgical evaluation. The patient was seen in collaboration with Dr. Reeder. Result Diagram: 09/30/[id number] Results 24hrs Laboratory Tests Test 09/29/18 08:59 09/30/18 04:41 Hepatitis A IgM Antibody NON-REACTIVE White Blood Count 2.9 #L Red Blood Count 5.07 Hemoglobin 14.7 Hematocrit 44.4 Mean Corpuscular Volume 87.6 Mean Corpuscular Hemoglobin 29.0 Mean Corpuscular Hemoglobin Concent 33.1 Red Cell Distribution Width 13.2 Platelet Count 319 Mean Platelet Volume 9.9 Immature Granulocytes % 0.300 Neutrophils % 62.0 Lymphocytes % 32.2 Monocytes % 5.2 Eosinophils % 0.0 Basophils % 0.3 Nucleated Red Blood Cells % 0.0 Immature Granulocytes # 0.010 Neutrophils # 1.8 Lymphocytes # 0.9 Monocytes # 0.2 L Eosinophils # 0.0 Basophils # 0.0 Nucleated Red Blood Cells # 0.0 Sodium Level 142 Potassium Level 5.2 H Chloride Level 104 Carbon Dioxide Level 31 Anion Gap 7 Blood Urea Nitrogen 13 Creatinine 0.99 Est Glomerular Filtrat Rate mL/min > 60 Glucose Level 140 # Calcium Level 9.1 Phosphorus Level 4.4 Magnesium Level 2.3 Total Bilirubin 0.6 Direct Bilirubin 0.00 Indirect Bilirubin 0.6 Aspartate Amino Transf (AST/SGOT) 94 H Alanine Aminotransferase (ALT/SGPT) 469 H Alkaline Phosphatase 137 H Total Protein 7.9 Albumin 4.0 Globulin 3.90 H Albumin/Globulin Ratio 1.02 Exam/Review of Systems Exam Vitals Vital Signs Date Temp Pulse Resp B/P (MAP) Pulse Ox O2 O2 Flow FiO2 Time Delivery Rate 09/30/18 98.6 68 18 106/59 99 Room Air 08:03 (75) 09/29/18 4.0 19:45 Intake and Output 09/29/18 09/29/18 09/30/18 1515:00 23:00 07:00 IntakeIntake Total 1025 ml 575 ml BalanceBalance 1025 ml 575 ml Results Results 24hrs Laboratory Tests Test 09/29/18 08:59 09/30/18 04:41 Hepatitis A IgM Antibody NON-REACTIVE White Blood Count 2.9 #L Red Blood Count 5.07 Hemoglobin 14.7 Hematocrit 44.4 Mean Corpuscular Volume 87.6 Mean Corpuscular Hemoglobin 29.0 Mean Corpuscular Hemoglobin Concent 33.1 Red Cell Distribution Width 13.2 Platelet Count 319 Mean Platelet Volume 9.9 Immature Granulocytes % 0.300 Neutrophils % 62.0 Lymphocytes % 32.2 Monocytes % 5.2 Eosinophils % 0.0 Basophils % 0.3 Nucleated Red Blood Cells % 0.0 Immature Granulocytes # 0.010 Neutrophils # 1.8 Lymphocytes # 0.9 Monocytes # 0.2 L Eosinophils # 0.0 Basophils # 0.0 Nucleated Red Blood Cells # 0.0 Sodium Level 142 Potassium Level 5.2 H Chloride Level 104 Carbon Dioxide Level 31 Anion Gap 7 Blood Urea Nitrogen 13 Creatinine 0.99 Est Glomerular Filtrat Rate mL/min > 60 Glucose Level 140 # Calcium Level 9.1 Phosphorus Level 4.4 Magnesium Level 2.3 Total Bilirubin 0.6 Direct Bilirubin 0.00 Indirect Bilirubin 0.6 Aspartate Amino Transf (AST/SGOT) 94 H Alanine Aminotransferase (ALT/SGPT) 469 H Alkaline Phosphatase 137 H Total Protein 7.9 Albumin 4.0 Globulin 3.90 H Albumin/Globulin Ratio 1.02 Medications Medication Current Medications IV Flush (NS 3 ml) 3 ml PER PROTOCOL IV ; Start 09/28/18 at 04:30 Ondansetron HCl (Zofran Inj) 4 mg Q6H PRN IV NAUSEA/VOMITING; Start 09/28/18 at 04:30 Acetaminophen (Tylenol Tab) 650 mg Q6H PRN PO .PAIN 1-3 OR TEMP Last administered on 09/29/18at 06:24; Admin Dose 650 MG; Start 09/28/18 at 04:30 Acetaminophen/ Hydrocodone Bitart ([place] (5/325)) 1 tab Q6H PRN PO .MOD PAIN 4- 6; Start 09/28/18 at 04:30 Morphine Sulfate (morphine) 2 mg Q4H PRN IV .SEVERE PAIN 7-10; Start 09/28/18 at 04:30 Docusate Sodium (Colace) 100 mg Q12H PRN PO .CONSTIPATION; Start 09/28/18 at 04:30 Magnesium Hydroxide (Milk Of Mag) 30 ml DAILY PRN PO .CONSTIPATION; Start 09/28/18 at 04:30 Famotidine (Pepcid Iv) 20 mg DAILY IV Last administered on 09/29/18at 09:01; Admin Dose 20 MG; Start 09/28/18 at 09:00 Heparin Sodium (Porcine) (Heparin (5000 Units/1ml)) 5,000 unit Q12 SC Last administered on 09/29/18at 21:39; Admin Dose 5,000 UNIT; Start 09/28/18 at 09:00 Lorazepam (Ativan) 0.5 mg Q6H PRN IV ANXIETY; Start 09/28/18 at 04:30 Albuterol/ Ipratropium (Duoneb) 3 ml Q4H RESP THERAPY PRN HHN SHORTNESS OF BREATH; Start 09/28/18 at 04:30 Piperacillin Sod/ Tazobactam Sod 100 ml @ 200 mls/hr Q6 IVPB Last administered on 09/30/18at 05:42; Admin Dose 200 MLS/HR; Start 09/28/18 at 06:00 Hydralazine HCl (Apresoline) 10 mg Q6H PRN IV ELEVATED BLOOD PRESSURE; Start 09/28/18 at 04:30 Nitroglycerin (Nitroglycerin (Sl Tab) 0.4 Mg) 1 tab Q5M PRN SL ANGINA; Start 09/28/18 at 04:30 Lactated Ringer's 1,000 ml @ 75 mls/hr [id number] IV Last administered on 09/29/18at 23:45; Admin Dose 75 MLS/HR; Start 09/28/18 at 13:00 GALE SHEA NP Sep 30, 2018 08:53
[2018-09-30] MEDS: FAMOTIDINE 20 MG INJ IV SCH (09:22)
[2018-09-30] MEDS: HEPARIN 5,000 UNIT/1 ML VIAL SC SCH ×2 (09:22→20:53)
[2018-09-30 16:33] VITALS: BP 119/75; PULSE 80; RESP 18
[2018-09-30] MEDS: LACTATED RINGER'S 1,000 ML IV SCH ×2 (18:20→23:36)
[2018-09-30] MEDS: SACCHAROMYCES BOULARDII 250 MG CAP PO SCH (21:26)
[2018-09-30 21:43] VITALS: BP 117/83; PULSE 65; RESP 18
[2018-10-01] VITALS: BP 102/64; PULSE 63; RESP 20
--- NOTE | 2018-10-01 01:33 | CONS ---
Assessment/Plan Assessment/Plan Assessment/Plan (Daily) cholelithiasis , cholcystitis , cholangiitis , chiledocholithiasis , stent placement , replacement , possible obstruction , with marked elevation of LFTs , now improving after repalcement of stent discussed rec for lap fer . Timing either on this admission or if stable and OR time not readily available , consider discharge and do as outpatinet within a week Consultation Date/Type/Reason Admit Date/Time Sep 28, 2018 at 03:18 Date of Consultation: Sep 30, 2018 Type of Consult general surgery Reason for Consultation cholecystitis, cholangitis, elevated lfts , recent biliary stent Requesting Provider: CHARLYE DIAMOND MD Date/Time of Note DATE: 09/30/18 TIME: 20:00 Hx of Present Illness patient admitted September 28, with upper abdominal pain , similar to pain that he had last week when he presented to the hospital with signs and symptoms of CBD obstruction . He underwent ERCP with stent placement last week September 24, 2018. He was discharged the day after the procedure . Two days later on this admission , he presented to the ER with marked elevation of LFTs , ALT/AST 600/900 . Repeat ERCP done yesterday , and stent replaced . No obvious stones noted , Gallbladder visualized . Patine tdenies any abdominal pain , nausea , fevers , or chills . WBC normal , Blood cultures neg to date . On Zosyn Past Medical History Home Meds Reported Medications Acetaminophen* (Acetaminophen*) 500 MG Extra Strength Tablet, 1000 MG PO Q6H PRN for PAIN AND OR ELEVATED TEMP, TAB 09/28/18 Medications Current Medications IV Flush (NS 3 ml) 3 ml PER PROTOCOL IV Last administered on 09/30/18at 20:14; Admin Dose 3 ML; Start 09/28/18 at 04:30 Ondansetron HCl (Zofran Inj) 4 mg Q6H PRN IV NAUSEA/VOMITING; Start 09/28/18 at 04:30 Acetaminophen (Tylenol Tab) 650 mg Q6H PRN PO .PAIN 1-3 OR TEMP Last administered on 09/29/18at 06:24; Admin Dose 650 MG; Start 09/28/18 at 04:30 Acetaminophen/ Hydrocodone Bitart ([place] (5/325)) 1 tab Q6H PRN PO .MOD PAIN 4- 6; Start 09/28/18 at 04:30 Morphine Sulfate (morphine) 2 mg Q4H PRN IV .SEVERE PAIN 7-10; Start 09/28/18 at 04:30 Docusate Sodium (Colace) 100 mg Q12H PRN PO .CONSTIPATION; Start 09/28/18 at 04:30 Magnesium Hydroxide (Milk Of Mag) 30 ml DAILY PRN PO .CONSTIPATION; Start 09/28/18 at 04:30 Famotidine (Pepcid Iv) 20 mg DAILY IV Last administered on 09/30/18at 09:22; Admin Dose 20 MG; Start 09/28/18 at 09:00 Heparin Sodium (Porcine) (Heparin (5000 Units/1ml)) 5,000 unit Q12 SC Last administered on 09/30/18at 20:53; Admin Dose 5,000 UNIT; Start 09/28/18 at 09:00 Lorazepam (Ativan) 0.5 mg Q6H PRN IV ANXIETY; Start 09/28/18 at 04:30 Albuterol/ Ipratropium (Duoneb) 3 ml Q4H RESP THERAPY PRN HHN SHORTNESS OF BREATH; Start 09/28/18 at 04:30 Piperacillin Sod/ Tazobactam Sod 100 ml @ 200 mls/hr Q6 IVPB Last administered on 09/30/18at 23:35; Admin Dose 200 MLS/HR; Start 09/28/18 at 06:00 Hydralazine HCl (Apresoline) 10 mg Q6H PRN IV ELEVATED BLOOD PRESSURE; Start 09/28/18 at 04:30 Nitroglycerin (Nitroglycerin (Sl Tab) 0.4 Mg) 1 tab Q5M PRN SL ANGINA; Start 09/28/18 at 04:30 Lactated Ringer's 1,000 ml @ 75 mls/hr [id number] IV Last administered on 09/30/18at 23:36; Admin Dose 75 MLS/HR; Start 09/28/18 at 13:00 Saccharomyces Boulardii (Florastor) 250 mg BID PO Last administered on 09/30/18at 21:26; Admin Dose 250 MG; Start 09/30/18 at 21:00 Allergies: Coded Allergies: No Known Allergy (Unverified , 09/28/18) Past Surgical History Past Surgical Hx: no surgical history Social History Smoking Status: Unknown if ever smoked Exam/Review of Systems Exam Vitals Vital Signs Date Temp Pulse Resp B/P (MAP) Pulse Ox O2 O2 Flow FiO2 Time Delivery Rate 10/01/18 97.9 63 20 102/64 98 Room Air 00:00 (77) 09/29/18 4.0 19:45 Intake and Output 09/30/18 09/30/18 10/01/18 1414:59 22:59 06:59 IntakeIntake Total 800 ml 2180 ml 340 ml OutputOutput Total 400 ml BalanceBalance 800 ml 1780 ml 340 ml Results Result Diagram: 09/30/18 0441 09/30/18 0441 Results 24hrs Laboratory Tests Test 09/30/18 04:41 White Blood Count 2.9 #L Red Blood Count 5.07 Hemoglobin 14.7 Hematocrit 44.4 Mean Corpuscular Volume 87.6 Mean Corpuscular Hemoglobin 29.0 Mean Corpuscular Hemoglobin Concent 33.1 Red Cell Distribution Width 13.2 Platelet Count 319 Mean Platelet Volume 9.9 Immature Granulocytes % 0.300 Neutrophils % 62.0 Lymphocytes % 32.2 Monocytes % 5.2 Eosinophils % 0.0 Basophils % 0.3 Nucleated Red Blood Cells % 0.0 Immature Granulocytes # 0.010 Neutrophils # 1.8 Lymphocytes # 0.9 Monocytes # 0.2 L Eosinophils # 0.0 Basophils # 0.0 Nucleated Red Blood Cells # 0.0 Sodium Level 142 Potassium Level 5.2 H Chloride Level 104 Carbon Dioxide Level 31 Anion Gap 7 Blood Urea Nitrogen 13 Creatinine 0.99 Est Glomerular Filtrat Rate mL/min > 60 Glucose Level 140 # Calcium Level 9.1 Phosphorus Level 4.4 Magnesium Level 2.3 Total Bilirubin 0.6 Direct Bilirubin 0.00 Indirect Bilirubin 0.6 Aspartate Amino Transf (AST/SGOT) 94 H Alanine Aminotransferase (ALT/SGPT) 469 H Alkaline Phosphatase 137 H Total Protein 7.9 Albumin 4.0 Globulin 3.90 H Albumin/Globulin Ratio 1.02 Medications Medication Current Medications IV Flush (NS 3 ml) 3 ml PER PROTOCOL IV Last administered on 09/30/18at 20:14; Admin Dose 3 ML; Start 09/28/18 at 04:30 Ondansetron HCl (Zofran Inj) 4 mg Q6H PRN IV NAUSEA/VOMITING; Start 09/28/18 at 04:30 Acetaminophen (Tylenol Tab) 650 mg Q6H PRN PO .PAIN 1-3 OR TEMP Last administered on 09/29/18at 06:24; Admin Dose 650 MG; Start 09/28/18 at 04:30 Acetaminophen/ Hydrocodone Bitart ([place] (5/325)) 1 tab Q6H PRN PO .MOD PAIN 4- 6; Start 09/28/18 at 04:30 Morphine Sulfate (morphine) 2 mg Q4H PRN IV .SEVERE PAIN 7-10; Start 09/28/18 at 04:30 Docusate Sodium (Colace) 100 mg Q12H PRN PO .CONSTIPATION; Start 09/28/18 at 04:30 Magnesium Hydroxide (Milk Of Mag) 30 ml DAILY PRN PO .CONSTIPATION; Start 09/28/18 at 04:30 Famotidine (Pepcid Iv) 20 mg DAILY IV Last administered on 09/30/18at 09:22; Admin Dose 20 MG; Start 09/28/18 at 09:00 Heparin Sodium (Porcine) (Heparin (5000 Units/1ml)) 5,000 unit Q12 SC Last administered on 09/30/18at 20:53; Admin Dose 5,000 UNIT; Start 09/28/18 at 09:00 Lorazepam (Ativan) 0.5 mg Q6H PRN IV ANXIETY; Start 09/28/18 at 04:30 Albuterol/ Ipratropium (Duoneb) 3 ml Q4H RESP THERAPY PRN HHN SHORTNESS OF HOMA TH; Start 09/28/18 at 04:30 Piperacillin Sod/ Tazobactam Sod 100 ml @ 200 mls/hr Q6 IVPB Last administered on 09/30/18at 23:35; Admin Dose 200 MLS/HR; Start 09/28/18 at 06:00 Hydralazine HCl (Apresoline) 10 mg Q6H PRN IV ELEVATED BLOOD PRESSURE; Start 09/28/18 at 04:30 Nitroglycerin (Nitroglycerin (Sl Tab) 0.4 Mg) 1 tab Q5M PRN SL ANGINA; Start 09/28/18 at 04:30 Lactated Ringer's 1,000 ml @ 75 mls/hr [id number] IV Last administered on 09/30/18at 23:36; Admin Dose 75 MLS/HR; Start 09/28/18 at 13:00 Saccharomyces Boulardii (Florastor) 250 mg BID PO Last administered on 09/30/18at 21:26; Admin Dose 250 MG; Start 09/30/18 at 21:00 LAKESHIA WILLIAMSON MD Oct 01, 2018 01:31
[2018-10-01] MEDS: PIPER-TAZO 3.375 GM IV (PMX) 100 ML IVPB SCH ×4 (06:38→23:45)
[2018-10-01 08:23] VITALS: BP 117/72; PULSE 61; RESP 18
[2018-10-01] MEDS: HEPARIN 5,000 UNIT/1 ML VIAL SC SCH (09:00)
[2018-10-01] MEDS: FAMOTIDINE 20 MG INJ IV SCH (09:16)
[2018-10-01] MEDS: SACCHAROMYCES BOULARDII 250 MG CAP PO SCH ×2 (09:16→20:38)
--- NOTE | 2018-10-01 18:01 | PN ---
Date/Time of Note Date/Time of Note DATE: 10/01/18 TIME: 17:59 Assessment/Plan VTE Prophylaxis Risk score (from Nsg)>0 risk: 0 SCD applied (from Nsg): Yes SCD contraindicated: low risk/ambulating Pharmacological prophylaxis: LMWH Pharm contraindication: surgical contra Lines/Catheters IV Catheter Type (from Nrs): Peripheral IV Urinary Cath still in place: No Assessment/Plan Hospital Course A/P 1. Acute on chronic cholecystitis, mod stable, consider lap fer No chest pain dyspnea, low perioperative risk. May proceed forward to surgery for medical management 2. Obstructive jaundice status post stent ERCP last week. 3. Recurrent abdominal pain status post stent removal/exchange S: Events noted Objective: Vital signs stable Physical exam No pallor icterus adenopathy Regular Clear Bs diminished mild tender nondistended no RRG No edema Result Diagram: 10/01/188 10/01/18 0438 Results 24hrs Laboratory Tests Test 10/01/18 04:38 White Blood Count 7.5 # Red Blood Count 4.71 Hemoglobin 13.5 L Hematocrit 41.7 L Mean Corpuscular Volume 88.5 Mean Corpuscular Hemoglobin 28.7 L Mean Corpuscular Hemoglobin Concent 32.4 Red Cell Distribution Width 13.4 Platelet Count 337 Mean Platelet Volume 9.6 Immature Granulocytes % 0.300 Neutrophils % 51.2 Lymphocytes % 36.4 Monocytes % 10.3 Eosinophils % 1.1 Basophils % 0.7 Nucleated Red Blood Cells % 0.0 Immature Granulocytes # 0.020 Neutrophils # 3.8 Lymphocytes # 2.7 Monocytes # 0.8 Eosinophils # 0.1 Basophils # 0.1 Nucleated Red Blood Cells # 0.0 Sodium Level 143 Potassium Level 4.5 Chloride Level 105 Carbon Dioxide Level 31 Anion Gap 7 Blood Urea Nitrogen 15 Creatinine 1.13 Est Glomerular Filtrat Rate mL/min > 60 Glucose Level 121 Calcium Level 8.8 Phosphorus Level 3.9 Magnesium Level 2.2 Total Bilirubin 0.5 Direct Bilirubin 0.00 Indirect Bilirubin 0.5 Aspartate Amino Transf (AST/SGOT) 54 H Alanine Aminotransferase (ALT/SGPT) 318 H Alkaline Phosphatase 101 Total Protein 7.1 Albumin 3.6 Globulin 3.50 H Albumin/Globulin Ratio 1.02 Amylase Level 73 Lipase 138 Exam/Review of Systems Exam Vitals Vital Signs Date Temp Pulse Resp B/P (MAP) Pulse Ox O2 O2 Flow FiO2 Time Delivery Rate 10/01/18 98.3 61 18 117/72 99 Room Air 08:23 (87) 09/29/18 4.0 19:45 Intake and Output 09/30/18 09/30/18 10/01/18 1515:00 23:00 07:00 IntakeIntake Total 800 ml 2420 ml 550 ml OutputOutput Total 400 ml 400 ml BalanceBalance 800 ml 2020 ml 150 ml Results Results 24hrs Laboratory Tests Test 10/01/18 04:38 White Blood Count 7.5 # Red Blood Count 4.71 Hemoglobin 13.5 L Hematocrit 41.7 L Mean Corpuscular Volume 88.5 Mean Corpuscular Hemoglobin 28.7 L Mean Corpuscular Hemoglobin Concent 32.4 Red Cell Distribution Width 13.4 Platelet Count 337 Mean Platelet Volume 9.6 Immature Granulocytes % 0.300 Neutrophils % 51.2 Lymphocytes % 36.4 Monocytes % 10.3 Eosinophils % 1.1 Basophils % 0.7 Nucleated Red Blood Cells % 0.0 Immature Granulocytes # 0.020 Neutrophils # 3.8 Lymphocytes # 2.7 Monocytes # 0.8 Eosinophils # 0.1 Basophils # 0.1 Nucleated Red Blood Cells # 0.0 Sodium Level 143 Potassium Level 4.5 Chloride Level 105 Carbon Dioxide Level 31 Anion Gap 7 Blood Urea Nitrogen 15 Creatinine 1.13 Est Glomerular Filtrat Rate mL/min > 60 Glucose Level 121 Calcium Level 8.8 Phosphorus Level 3.9 Magnesium Level 2.2 Total Bilirubin 0.5 Direct Bilirubin 0.00 Indirect Bilirubin 0.5 Aspartate Amino Transf (AST/SGOT) 54 H Alanine Aminotransferase (ALT/SGPT) 318 H Alkaline Phosphatase 101 Total Protein 7.1 Albumin 3.6 Globulin 3.50 H Albumin/Globulin Ratio 1.02 Amylase Level 73 Lipase 138 Medications Medication Current Medications IV Flush (NS 3 ml) 3 ml PER PROTOCOL IV Last administered on 09/30/18at 20:14; Admin Dose 3 ML; Start 09/28/18 at 04:30 Ondansetron HCl (Zofran Inj) 4 mg Q6H PRN IV NAUSEA/VOMITING; Start 09/28/18 at 04:30 Acetaminophen (Tylenol Tab) 650 mg Q6H PRN PO .PAIN 1-3 OR TEMP Last administered on 09/29/18at 06:24; Admin Dose 650 MG; Start 09/28/18 at 04:30 Acetaminophen/ Hydrocodone Bitart ([place] (5/325)) 1 tab Q6H PRN PO .MOD PAIN 4- 6; Start 09/28/18 at 04:30 Morphine Sulfate (morphine) 2 mg Q4H PRN IV .SEVERE PAIN 7-10; Start 09/28/18 at 04:30 Docusate Sodium (Colace) 100 mg Q12H PRN PO .CONSTIPATION; Start 09/28/18 at 04 :30 Magnesium Hydroxide (Milk Of Mag) 30 ml DAILY PRN PO .CONSTIPATION; Start 09/28/18 at 04:30 Famotidine (Pepcid Iv) 20 mg DAILY IV Last administered on 10/01/18at 09:16; Admin Dose 20 MG; Start 09/28/18 at 09:00 Heparin Sodium (Porcine) (Heparin (5000 Units/1ml)) 5,000 unit Q12 SC Last administered on 09/30/18at 20:53; Admin Dose 5,000 UNIT; Start 09/28/18 at 09:00 Lorazepam (Ativan) 0.5 mg Q6H PRN IV ANXIETY; Start 09/28/18 at 04:30 Albuterol/ Ipratropium (Duoneb) 3 ml Q4H RESP THERAPY PRN HHN SHORTNESS OF BREATH; Start 09/28/18 at 04:30 Piperacillin Sod/ Tazobactam Sod 100 ml @ 200 mls/hr Q6 IVPB Last administered on 10/01/18at 12:24; Admin Dose 200 MLS/HR; Start 09/28/18 at 06:00 Hydralazine HCl (Apresoline) 10 mg Q6H PRN IV ELEVATED BLOOD PRESSURE; Start 09/28/18 at 04:30 Nitroglycerin (Nitroglycerin (Sl Tab) 0.4 Mg) 1 tab Q5M PRN SL ANGINA; Start 09/28/18 at 04:30 Saccharomyces Boulardii (Florastor) 250 mg BID PO Last administered on 10/01/18at 09:16; Admin Dose 250 MG; Start 09/30/18 at 21:00 LD MANN MD Oct 01, 2018 18:01
[2018-10-01 19:20] VITALS: BP 129/80; PULSE 65; RESP 18
[2018-10-01] MEDS: DEXTROSE 5%-0.45% NACL 1,000 ML IV SCH (20:38)
[2018-10-02] VITALS (20 sets, daily range): BP systolic 97–134; BP diastolic 54–86; PULSE 59–96; RESP 16–18
[2018-10-02] MEDS: PIPER-TAZO 3.375 GM IV (PMX) 100 ML IVPB SCH ×4 (05:28→23:59)
[2018-10-02] MEDS ORDERED: SEVOFLURANE 15 MIN ONE (07:00)
[2018-10-02] MEDS ORDERED: BUPIVACAINE 0.25%/EPI (SDV) 30 ML INJ ONE (07:16)
[2018-10-02] MEDS ORDERED: LIDOCAINE 1% (MPF) 30 ML INJ ONE (07:16)
--- NOTE | 2018-10-02 07:30 | PREAC ---
Date/Time of Note Date/Time of Note DATE: 10/02/18 TIME: 07:29 Anesthesia Eval and Record Evaluation Time Pre-Procedure Interview DATE: 10/02/18 TIME: 07:29 Age 38 Sex male NPO: 8 hrs Preoperative diagnosis cholecystitis Planned procedure laparoscopic cholecystectomy Past Medical History Past Medical History: Includes GI: Obesity Surgery & Anesthesia Issues No known issue Meds Anticoagulation: No Beta Iglesia within 24 hr: No Reason Beta Iglesia not given: Pt. not on B-Iglesia Reported Medications Acetaminophen* (Acetaminophen*) 500 MG Extra Strength Tablet, 1000 MG PO Q6H PRN for PAIN AND OR ELEVATED TEMP, TAB 09/28/18 Current Medications IV Flush (NS 3 ml) 3 ml PER PROTOCOL IV Last administered on 09/30/18at 20:14; Admin Dose 3 ML; Start 09/28/18 at 04:30 Ondansetron HCl (Zofran Inj) 4 mg Q6H PRN IV NAUSEA/VOMITING; Start 09/28/18 at 04:30 Acetaminophen (Tylenol Tab) 650 mg Q6H PRN PO .PAIN 1-3 OR TEMP Last administered on 09/29/18at 06:24; Admin Dose 650 MG; Start 09/28/18 at 04:30 Acetaminophen/ Hydrocodone Bitart ([place] (5/325)) 1 tab Q6H PRN PO .MOD PAIN 4- 6; Start 09/28/18 at 04:30 Morphine Sulfate (morphine) 2 mg Q4H PRN IV .SEVERE PAIN 7-10; Start 09/28/18 at 04:30 Docusate Sodium (Colace) 100 mg Q12H PRN PO .CONSTIPATION; Start 09/28/18 at 04:30 Magnesium Hydroxide (Milk Of Mag) 30 ml DAILY PRN PO .CONSTIPATION; Start 09/28/18 at 04:30 Famotidine (Pepcid Iv) 20 mg DAILY IV Last administered on 10/01/18at 09:16; Admin Dose 20 MG; Start 09/28/18 at 09:00 Lorazepam (Ativan) 0.5 mg Q6H PRN IV ANXIETY; Start 09/28/18 at 04:30 Albuterol/ Ipratropium (Duoneb) 3 ml Q4H RESP THERAPY PRN HHN SHORTNESS OF BREATH; Start 09/28/18 at 04:30 Piperacillin Sod/ Tazobactam Sod 100 ml @ 200 mls/hr Q6 IVPB Last administered on 10/02/18at 05:28; Admin Dose 200 MLS/HR; Start 09/28/18 at 06:00 Hydralazine HCl (Apresoline) 10 mg Q6H PRN IV ELEVATED BLOOD PRESSURE; Start 09/28/18 at 04:30 Nitroglycerin (Nitroglycerin (Sl Tab) 0.4 Mg) 1 tab Q5M PRN SL ANGINA; Start 09/28/18 at 04:30 Saccharomyces Boulardii (Florastor) 250 mg BID PO Last administered on 10/01/18at 20:38; Admin Dose 250 MG; Start 09/30/18 at 21:00 Heparin Sodium (Porcine) (Heparin (5000 Units/1ml)) 5,000 unit Q12 SC ; Start 10/03/18 at 09:00 Dextrose/Sodium Chloride 1,000 ml @ 75 mls/hr [id number] IV Last administered on 10/01/18at 20:38; Admin Dose 75 MLS/HR; Start 10/01/18 at 22:00 Meds reviewed: Yes Allergies Coded Allergies: No Known Allergy (Unverified , 09/28/18) Allergies Reviewed: Yes Labs/Studies Labs Reviewed: Reviewed by anesthesiologist Result Diagram: 10/02/18 0501 10/02/18 0501 Laboratory Tests 10/02/18 05:01 test: N/A Pre-procedure Exam Last vitals Vital Signs Date Temp Pulse Resp B/P (MAP) Pulse Ox O2 O2 Flow FiO2 Time Delivery Rate 10/02/18 98.2 59 18 117/66 97 02:06 (83) 10/01/18 Room Air 08:23 09/29/18 4.0 19:45 Airway: Adequate mouth opening, Adequate thyromental dist Mallampati: Mallampati II Teeth: Normal Lung: Normal Heart: Normal ASA Physical Status ASA physical status: 2 Emergency: None Planned Anesthetic General/MAC: ETT Planned Pain Management Parenteral pain med Pre-operative Attestations Prior to commencing anesthesia and surgery, the patient was re-evaluated, there was verification of: *The patient's identity *The results of appropriate recent lab work and preoperative vital signs *The above evaluation not changing prior to induction *Anesthetic plan, risk benefits, alternative and complications discussed with patient/family; questions answered; patient/family understands, accepts and wishes to proceed. ORLANDO WU Oct 02, 2018 07:30
[2018-10-02] MEDS: SACCHAROMYCES BOULARDII 250 MG CAP PO SCH ×2 (09:00→20:43)
[2018-10-02] MEDS ORDERED: DEXAMETHASONE 4 MG/ML 5 ML INJ ONE (09:38)
[2018-10-02] MEDS ORDERED: ONDANSETRON 4 MG INJ ONE (09:38)
[2018-10-02] MEDS ORDERED: GLYCOPYRROLATE 0.4 MG INJ ONE (09:47)
[2018-10-02] MEDS ORDERED: NEOSTIGMINE 3 MG/3 ML SYRINGE ONE (09:47)
--- NOTE | 2018-10-02 09:56 | PAC ---
Date/Time of Note Date/Time of Note DATE: 10/02/18 TIME: 09:55 Post-Anesthesia Notes Post-Anesthesia Note Last documented vital signs Vital Signs Date Temp Pulse Resp B/P (MAP) Pulse Ox O2 O2 Flow FiO2 Time Delivery Rate 10/02/18 98.7 74 17 131/76 98 09:54 10/02/18 59 18 117/66 97 02:06 (83) 10/01/18 Room Air 08:23 09/29/18 4.0 19:45 Activity: WNL Respiratory function: WNL Cardiovascular function: WNL Mental status: Baseline Pain reasonably controlled: Yes Hydration appropriate: Yes Nausea/Vomiting absent: Yes ORLANDO WU Oct 02, 2018 09:56
[2018-10-02] MEDS ORDERED: ALBUTEROL 0.083% (NEB) 2.5 MG/3 ML AMP HHN PRN (10:00)
[2018-10-02] MEDS ORDERED: HYDROmorphONE 1 MG/5 ML IV SYRINGE IV PRN ×3 (10:00)
[2018-10-02] MEDS ORDERED: LABETALOL HCL 20MG INJ IV PRN (10:00)
[2018-10-02] MEDS ORDERED: MEPERIDINE 25 MG INJ IV PRN (10:00)
[2018-10-02] MEDS ORDERED: KETOROLAC 30 MG INJ IV PRN (10:00)
[2018-10-02] MEDS ORDERED: DIPHENHYDRAMINE 50 MG INJ IV PRN (10:00)
[2018-10-02] MEDS ORDERED: EPHEDrine 25 MG/5 ML SYG IV PRN (10:00)
[2018-10-02] MEDS ORDERED: ONDANSETRON 4 MG INJ IV PRN ×2 (10:00→23:30)
[2018-10-02] MEDS ORDERED: hydrALAzine 20 MG INJ IV PRN (10:00)
[2018-10-02] MEDS ORDERED: FENTAnyl 50 MCG/ML VIAL IV PRN ×3 (10:00)
--- NOTE | 2018-10-02 10:28 | OPR ---
Date/Time of Note Date/Time of Note DATE: 10/02/18 TIME: 09:56 Operative Report Free Text/Dictation operative report Procedure Date: Oct 02, 2018 Preoperative Diagnosis Her apartment cholecystitis, choledocholithiasis, status post ERCP and stent with stent obstruction and exchange Postoperative Diagnosis Same Operation/Procedure Performed Laparoscopic cholecystectomy Surgeon see signature line Junior Business Analyst None Anesthesia Type: general Anesthesiologist: ORLANDO WU Estimated Blood Loss: 0 - 10 ml's Transfusion none Specimen Gallbladder and content Grafts/Implants none Tubes/Drains None Complications none Pt Condition Post Procedure: stable Disposition: PACU Indications Patient presented last week to [facility] with abdominal pain noted to have signs and symptoms of choledocholithiasis. He underwent ERCP with stent placement and was discharged to home. 2 days later re-presented to the emergency room with severe pain and noted to have marked elevation of LFTs with AST ALT 609 100. A repeat ERCP was performed the stent was exchanged and a new stent placed. Clinical suspicion was for cholangitis unclear etiology there is no obvious stones in the common duct at the time of the second ERCP. However was now found that the LFTs were improving and was indicated for cholecystectomy before discharge. Risk benefits alternatives were discussed with the patient and his . He was brought for surgery urgently on today's date. The gallbladder was moderately thickened consistent with chronic cholecystitis. The cystic duct was dilated and therefore a endogia was used ra ther than endoscopic clips to divide the cystric duct Procedure Description The patient was brought to the operating room , placed in supine position and general anesthesia was administered by GETT. A TAP block was done by anesthesia . Time out was completed . A Veress needle was inserted at [facility] and insufflation given to maintain pneumoperitoneum at 15 mm HG during the procedure . a small stab incision was made just above the umbilicus and a 5 mm port was inserted . the Veress was removed . A 12 mm epigastric , and 2 right sided 5 mm trocarswere inserted . The Boogie arm retractor was placed . The gallbladder was retracted cephalad . The Hartmans pouch was grasped and retracted upward . Hook cautery was used to score the peritoneum along the anterior and posreir portion at the level of the neck , skeletonizing the lymph node and the junction of the cystic duct and artery. The cystic duct was dilated and was too big to accomodate a laparoiscopic clip . A endogia was therefore used with good result . Critical view wasmaintained . . Hemostasis was excellent , bleeding minimal Pneumoperitonum was allowed to escape and insufflation halted after the epigastric wound was closed with a 0 ethibond suture . Torcars were removed . incisons closed with 4-0 monocryl and skin glue extubated in the operating room and brought to [id number] room stable LAKESHIA WILLIAMSON MD Oct 02, 2018 10:28
[2018-10-02] MEDS ORDERED: KETOROLAC 15 MG INJ IV PRN (10:30)
[2018-10-02] MEDS ORDERED: ACETAMINOPHEN 325 MG TAB PO PRN (10:30)
[2018-10-02] MEDS: FAMOTIDINE 20 MG INJ IV SCH (11:39)
[2018-10-02] MEDS: DEXTROSE 5%-0.45% NACL 1,000 ML IV SCH ×2 (11:40→15:56)
--- NOTE | 2018-10-02 12:08 | PN ---
Date/Time of Note Date/Time of Note DATE: 10/02/18 TIME: 12:06 Assessment/Plan VTE Prophylaxis Risk score (from Ns)>0 risk: 3 SCD applied (from Ns): No SCD contraindicated: low risk/ambulating Pharmacological prophylaxis: NA/contraindicated Pharm contraindication: low risk/ambulating, surgical contra Lines/Catheters IV Catheter Type (from Rust): Peripheral IV Urinary Cath still in place: No Assessment/Plan Hospital Course A/P 1. Acute on chronic cholecystitis, stable, sp lap fer. Rx pain 2. Obstructive jaundice status post stent ERCP last week. 3. Recurrent abdominal pain status post stent removal/exchange S: 10/01 events noted 10/02: Events noted. No dyspnea fever O: Vital signs stable PE No pallor icterus Regular Clear Bs diminished mild tender nd; no RRG No edema Result Diagram: 10/02/18 0501 10/02/18 0501 Results 24hrs Laboratory Tests Test 10/02/18 05:01 White Blood Count 6.2 Red Blood Count 4.77 Hemoglobin 13.5 L Hematocrit 42.3 Mean Corpuscular Volume 88.7 Mean Corpuscular Hemoglobin 28.3 L Mean Corpuscular Hemoglobin Concent 31.9 L Red Cell Distribution Width 13.2 Platelet Count 373 Mean Platelet Volume 9.5 Immature Granulocytes % 0.300 Neutrophils % 47.3 Lymphocytes % 39.4 Monocytes % 10.6 Eosinophils % 1.9 Basophils % 0.5 Nucleated Red Blood Cells % 0.0 Immature Granulocytes # 0.020 Neutrophils # 3.0 Lymphocytes # 2.5 Monocytes # 0.7 Eosinophils # 0.1 Basophils # 0.0 Nucleated Red Blood Cells # 0.0 Sodium Level 144 Potassium Level 4.1 Chloride Level 104 Carbon Dioxide Level 32 H Anion Gap 8 Blood Urea Nitrogen 15 Creatinine 1.02 Est Glomerular Filtrat Rate mL/min > 60 Glucose Level 117 Calcium Level 8.7 Phosphorus Level 5.6 H Magnesium Level 2.3 Total Bilirubin 0.5 Direct Bilirubin 0.00 Indirect Bilirubin 0.5 Aspartate Amino Transf (AST/SGOT) 53 H Alanine Aminotransferase (ALT/SGPT) 265 H Alkaline Phosphatase 96 Total Protein 7.3 Albumin 3.7 Globulin 3.60 H Albumin/Globulin Ratio 1.02 Lipase 188 Exam/Review of Systems Exam Vitals Vital Signs Date Temp Pulse Resp B/P (MAP) Pulse Ox O2 O2 Flow FiO2 Time Delivery Rate 10/02/18 98.0 86 18 97/54 (68) 96 11:16 10/01/18 Room Air 08:23 09/29/18 4.0 19:45 Intake and Output 10/01/18 10/01/18 10/02/18 1515:00 23:00 07:00 IntakeIntake Total 200 ml 790 ml 625 ml BalanceBalance 200 ml 790 ml 625 ml Results Results 24hrs Laboratory Tests Test 10/02/18 05:01 White Blood Count 6.2 Red Blood Count 4.77 Hemoglobin 13.5 L Hematocrit 42.3 Mean Corpuscular Volume 88.7 Mean Corpuscular Hemoglobin 28.3 L Mean Corpuscular Hemoglobin Concent 31.9 L Red Cell Distribution Width 13.2 Platelet Count 373 Mean Platelet Volume 9.5 Immature Granulocytes % 0.300 Neutrophils % 47.3 Lymphocytes % 39.4 Monocytes % 10.6 Eosinophils % 1.9 Basophils % 0.5 Nucleated Red Blood Cells % 0.0 Immature Granulocytes # 0.020 Neutrophils # 3.0 Lymphocytes # 2.5 Monocytes # 0.7 Eosinophils # 0.1 Basophils # 0.0 Nucleated Red Blood Cells # 0.0 Sodium Level 144 Potassium Level 4.1 Chloride Level 104 Carbon Dioxide Level 32 H Anion Gap 8 Blood Urea Nitrogen 15 Creatinine 1.02 Est Glomerular Filtrat Rate mL/min > 60 Glucose Level 117 Calcium Level 8.7 Phosphorus Level 5.6 H Magnesium Level 2.3 Total Bilirubin 0.5 Direct Bilirubin 0.00 Indirect Bilirubin 0.5 Aspartate Amino Transf (AST/SGOT) 53 H Alanine Aminotransferase (ALT/SGPT) 265 H Alkaline Phosphatase 96 Total Protein 7.3 Albumin 3.7 Globulin 3.60 H Albumin/Globulin Ratio 1.02 Lipase 188 Medications Medication Current Medications IV Flush (NS 3 ml) 3 ml PER PROTOCOL IV Last administered on 09/30/18at 20:14; Admin Dose 3 ML; Start 09/28/18 at 04:30 Ondansetron HCl (Zofran Inj) 4 mg Q6H PRN IV NAUSEA/VOMITING; Start 09/28/18 at 04:30 Acetaminophen/ Hydrocodone Bitart (Morrison (5/325)) 1 tab Q6H PRN PO .MOD PAIN 4- 6; Start 09/28/18 at 04:30 Morphine Sulfate (morphine) 2 mg Q4H PRN IV .SEVERE PAIN 7-10; Start 09/28/18 at 04:30 Docusate Sodium (Colace) 100 mg Q12H PRN PO .CONSTIPATION; Start 09/28/18 at 04:30 Magnesium Hydroxide (Milk Of Mag) 30 ml DAILY PRN PO .CONSTIPATION; Start 09/28/18 at 04:30 Famotidine (Pepcid Iv) 20 mg DAILY IV Last administered on 10/02/18at 11:39; Admin Dose 20 MG; Start 09/28/18 at 09:00 Lorazepam (Ativan) 0.5 mg Q6H PRN IV ANXIETY; Start 09/28/18 at 04:30 Albuterol/ Ipratropium (Duoneb) 3 ml Q4H RESP THERAPY PRN HHN SHORTNESS OF BREATH; Start 09/28/18 at 04:30 Piperacillin Sod/ Tazobactam Sod 100 ml @ 200 mls/hr Q6 IVPB Last administered on 10/02/18at 11:40; Admin Dose 200 MLS/HR; Start 09/28/18 at 06:00 Hydralazine HCl (Apresoline) 10 mg Q6H PRN IV ELEVATED BLOOD PRESSURE; Start 09/28/18 at 04:30 Nitroglycerin (Nitroglycerin (Sl Tab) 0.4 Mg) 1 tab Q5M PRN SL ANGINA; Start 09/28/18 at 04:30 Saccharomyces Boulardii (Florastor) 250 mg BID PO Last administered on 10/01/18at 20:38; Admin Dose 250 MG; Start 09/30/18 at 21:00 Heparin Sodium (Porcine) (Heparin (5000 Units/1ml)) 5,000 unit Q12 SC ; Start 10/03/18 at 09:00 Dextrose/Sodium Chloride 1,000 ml @ 75 mls/hr [id number] IV Last administered on 10/02/18at 11:40; Admin Dose 75 MLS/HR; Start 10/01/18 at 22:00 Hydromorphone HCl (Dilaudid) 0.2 mg PACU PRN IV MILD PAIN 1-3; Start 10/02/18 at 10:00; Stop 10/02/18 at 15:00 Hydromorphone HCl (Dilaudid) 0.4 mg PACU PRN IV MOD PAIN 4-6; Start 10/02/18 at 10:00; Stop 10/02/18 at 15:00 Hydromorphone HCl (Dilaudid) 0.6 mg PACU PRN IV SEVERE PAIN 7-10; Start 10/02/18 at 10:00; Stop 10/02/18 at 15:00 Fentanyl (Sublimaze) 25 mcg PACU ORDER PRN IV MILD PAIN 1-3; Start 10/02/18 at 10:00; Stop 10/02/18 at 15:00 Fentanyl (Sublimaze) 50 mcg PACU ORDER PRN IV MOD PAIN 4-6; Start 10/02/18 at 10:00; Stop 10/02/18 at 15:00 Fentanyl (Sublimaze) 75 mcg PACU ORDER PRN IV SEVERE PAIN 7-10; Start 10/02/18 at 10:00; Stop 10/02/18 at 15:00 Ketorolac Tromethamine (Toradol) 30 mg PACU ORDER PRN IV FOR PAIN AFTER IV NARCOTIC MED Last administered on 10/02/18at 10:17; Admin Dose 30 MG; Start 10/02/18 at 10:00; Stop 10/02/18 at 15:00 Ondansetron HCl (Zofran Inj) 4 mg PACU ORDER PRN IV NAUSEA/VOMITING Last administered on 10/02/18at 10:17; Admin Dose 4 MG; Start 10/02/18 at 10:00; Stop 10/02/18 at 15:00 Labetalol HCl (Labetalol) 5 mg PACU ORDER PRN IV HIGH BLOOD PRESSURE; Start 10/02/18 at 10:00; Stop 10/02/18 at 15:00 Hydralazine HCl (Apresoline) 5 mg PACU ORDER PRN IV HIGH BLOOD PRESSURE; Start 10/02/18 at 10:00; Stop 10/02/18 at 15:00 Ephedrine Sulfate 5 mg PACU ORDER PRN IV BLOOD PRESSURE SUPPORT; Start 10/02/18 at 10:00; Stop 10/02/18 at 15:00 Albuterol (Proventil 0.083% (Neb)) 2.5 mg PACU ORDER PRN HHN .WHEEZING; Start 10/02/18 at 10:00; Stop 10/02/18 at 15:00 Meperidine HCl (Demerol) 25 mg PACU ORDER PRN IV .RIGORS; Start 10/02/18 at 1 0:00; Stop 10/02/18 at 15:00 Diphenhydramine HCl (Benadryl) 25 mg PACU ORDER PRN IV .PRURITUS; Start 10/02/18 at 10:00; Stop 10/02/18 at 15:00 Ketorolac Tromethamine (Toradol) 15 mg Q6H PRN IV PAIN; Start 10/02/18 at 10:30; Stop 10/05/18 at 10:29 Acetaminophen (Tylenol Tab) 650 mg Q6H PRN PO MILD PAIN(1-3)OR ELEVATED TEMP; Start 10/02/18 at 10:30 LD MANN MD Oct 02, 2018 12:08
[2018-10-03 02:42] VITALS: BP 109/61; PULSE 73; RESP 18
[2018-10-03] MEDS: PIPER-TAZO 3.375 GM IV (PMX) 100 ML IVPB SCH ×2 (05:33→12:58)
[2018-10-03 08:00] VITALS: BP 129/85; PULSE 58; RESP 18
[2018-10-03] MEDS ORDERED: FAMOTIDINE 20 MG TAB PO SCH (09:00)
[2018-10-03] MEDS ORDERED: HEPARIN 5,000 UNIT/1 ML VIAL SC SCH (09:00)
[2018-10-03] MEDS: SACCHAROMYCES BOULARDII 250 MG CAP PO SCH (09:35)
[2018-10-03 14:00] VITALS: BP 135/84; PULSE 71; RESP 18
[2018-10-03] MEDS: DEXTROSE 5%-0.45% NACL 1,000 ML IV SCH (14:00)
--- NOTE | 2018-10-03 16:09 | PDOCDIS ---
Discharge Instructions CONDITION [id number] Patient Condition: Usiqy0q Good HOME CARE INSTRUCTIONS: [id number] Diet Instructions: [id number] Low Fat /Cholesterol ACTIVITY: [id number] Activity Restrictions: [id number] Slowly Increase Activity Rest between Activity Avoid heavy lifting [id number] Bathing Restrictions: [id number] Shower FOLLOW UP/APPOINTMENTS Follow-up Plan appt Dr Jacquelin Garcia 1wk PCP 1-3 wks LD MANN MD Oct 03, 2018 16:09
[2018-10-03] MEDS ORDERED: CIPR500T4 PO (16:12)
[2018-10-03] MEDS ORDERED: ACET325T33 PO (16:12)
[2018-10-03] MEDS ORDERED: METR500T PO (16:12)
[2018-10-03] MEDS ORDERED: IBUP-1982 PO (16:12)
[2018-10-03] MEDS ORDERED: SACC250C PO (16:12)
[2018-10-03] MEDS ORDERED: DOCU-144 PO (16:12)
--- NOTE | 2018-10-03 16:38 | CONS ---
DATE OF ADMISSION: 09/28/2018 DATE OF CONSULTATION: The patient underwent the laparoscopic cholecystectomy. The patient had previously ERCP done. Commo n bile duct stones were removed. CBD stent was placed. He underwent laparoscopic cholecystectomy ye sterday. PHYSICAL EXAMINATION: GENERAL: On examination, he is alert. He is oriented. VITAL SIGNS: Temperature 97.8, pulse is 58, blood pressure is 129/85. CARDIOVASCULAR: Normal heart sounds. RESPIRATORY: Normal breath sounds. ABDOMEN: Shows soft abdomen, status post laparoscopic cholecystectomy. LABORATORY WORKUP: WBC count is 9800 yesterday, hemoglobin 13.6. Potassium is 4.7, AST is 53, ALT 2 65, alkaline phosphatase is 96. The lipase was 188 on 8th of the month. CLINICAL IMPRESSION: Status post ERCP and CBD stent removal and again after clearing the common bile duct, new CBD stent was placed and the patient underwent a laparoscopic cholecystectomy. He seems t o be stable. PLAN: Recommend outpatient removal of CBD stent in a couple of weeks. Dictated By: CHARLEY SPRINGER/BRIELLE Conf#: [id number] DID#: [id number] CC: NICA SUAREZ;*Mir*
[2018-10-03] MEDS ORDERED: CIPROFLOXACIN 500 MG TAB PO SCH (18:00)
--- NOTE | 2018-10-03 18:47 | DS ---
Date/Time of Note Date/Time of Note DATE: 10/03/18 TIME: 18:44 Discharge Summary Admission/Discharge Info Admit Date/Time Sep 28, 2018 at 03:18 Discharge Date/Time Oct 03, 2018 at 16:40 Patient Condition: Good Consults Destinee Garcia Procedures MRCP IMPRESSION: No evidence of biliary duct obstruction. Cholelithiasis with gallbladder wall thickening may represent cholecystitis. ERCP Laparoscopic cholecystectomy Hx of Present Illness Evaluated managed for recurrent abdominal pain Hospital Course Hospitalist coverage/hospital course - LFTs abnormal. placed on antibiotics. Was recently here and underwent ERCP stent placement for obstructive jaundice. Was scheduled to visit general surgery for elective lap fer. Unfortunately had breakthrough pain. Seen here by GI and underwent ERCP with stent exchange. Symptoms improved and underwent lap fer. He is postop day 1 stable and fit for discharge home. He is more than 50% better. Wound is clean and intact. Instructed him not to do any heavy lifting/ twisting. I gave him a prescription for Motrin, and Cipro and Flagyl for 5 days. A/P 1. Acute on chronic cholecystitis, stable, sp lap fer. Rx pain. Discharge home 2. Obstructive jaundice status post stent ERCP last week. He is instructed to follow-up with GI for stent removal 3. Recurrent abdominal pain status post stent removal/exchange S: 10/01 events noted 10/02: Events noted. No dyspnea fever 10/03: Tolerating diet positive flatus. No fever dyspnea Home Meds Active Scripts Ibuprofen* (Ibuprofen*) 200 Mg Capsule, 800 MG PO Q6 PRN for PAIN LEVEL 6-10 for 5 Days, CAP Prov:LD MANN MD 10/03/18 Acetaminophen* (Tylenol*) 325 Mg Tablet, 650 MG PO Q6H PRN for MILD PAIN(1-3)OR ELEVATED TEMP for 10 Days, TAB Prov:LD MANN MD 10/03/18 Docusate Sodium* (Colace*) 100 Mg Capsule, 100 MG PO Q12H PRN for .CONSTIPATION for 7 Days, CAP otc Prov:LD MANN MD 10/03/18 Saccharomyces Boulardii* (Florastor*) 250 Mg Cap, 250 MG PO BID for 10 Days, #20 CAP otc Prov:LD MANN MD 10/03/18 Ciprofloxacin Hcl* (Ciprofloxacin Hcl*) 500 Mg Tablet, 500 MG PO BID@06,18 for 5 Days, #10 TAB Prov:LD MANN MD 10/03/18 Metronidazole* (Flagyl*) 500 Mg Tablet, 500 MG PO Q8 for 5 Days, #15 TAB Prov:LD MANN MD 10/03/18 Discontinued Reported Medications Acetaminophen* (Acetaminophen*) 500 MG Extra Strength Tablet, 1000 MG PO Q6H PRN for PAIN AND OR ELEVATED TEMP, TAB 09/28/18 Follow-up Plan appt Dr Jacquelin Garcia 1wk PCP 1-3 wks Primary Care Provider Care Physician No Primary Time spent on discharge: > 30 minutes Pending Labs Laboratory Tests Test 10/03/18 04:32 10/03/18 04:33 Sodium Level 139 mmol/L (135-144) Potassium Level 4.7 mmol/L (3.5-5.1) Chloride Level 105 mmol/L (97-110) Carbon Dioxide Level 28 mmol/L (21-31) Anion Gap 6 (5-13) Blood Urea Nitrogen 11 mg/dl (7-20) Creatinine 1.04 mg/dl (0.61-1.24) Est Glomerular Filtrat > 60 mL/min (>60) Rate mL/min Glucose Level 139 mg/dl (70-220) Calcium Level 9.0 mg/dl (8.4-10.2) White Blood Count 9.8 10^3/ul (4.8-10.8) Red Blood Count 4.74 10^6/ul (4.70-6.10) Hemoglobin 13.6 g/dl (14.0-18.0) Hematocrit 41.2 % (42.0-52.0) Mean Corpuscular Volume 86.9 fl (82.0-101.0) Mean Corpuscular Hemoglobin 28.7 pg (29.0-33.0) Mean Corpuscular 33.0 g/dl (32.0-37.0) Hemoglobin Concent Red Cell Distribution Width 13.2 % (11.5-14.5) Platelet Count 401 10^3/UL (140-415) Mean Platelet Volume 9.5 fl (7.4-10.4) Immature Granulocytes % 0.300 % (0.001-0.429) Neutrophils % 67.5 % (39.0-77.0) Lymphocytes % 23.2 % (15.0-51.0) Monocytes % 8.5 % (0.0-11.0) Eosinophils % 0.3 % (0.0-7.0) Basophils % 0.2 % (0.0-2.0) Nucleated Red Blood Cells % 0.0 /100WBC (0.0-0.0) Immature Granulocytes # 0.030 10^3/ul (0.0-0.031) Neutrophils # 6.6 10^3/ul (1.6-7.5) Lymphocytes # 2.3 10^3/ul (0.8-2.9) Monocytes # 0.8 10^3/ul (0.3-0.9) Eosinophils # 0.0 10^3/ul (0.0-0.5) Basophils # 0.0 10^3/ul (0.0-0.1) Nucleated Red Blood Cells # 0.0 10^3/ul (0.0-0.0) LD MANN MD Oct 03, 2018 18:47
[2018-10-03] MEDS ORDERED: metroNIDAZOLE 500 MG TAB PO SCH (22:00)
--- NOTE | 2018-10-04 08:12 | PN ---
DATE: 10/01/2018 SUBJECTIVE: The patient at this time is quite alert. He is not having abdominal pain. No nausea, n o vomiting. Currently no fever. PHYSICAL EXAMINATION: VITAL SIGNS: The patient's temperature is 98.3, blood pressure is 117/72, pulse is 61. CARDIOVASCULAR: Normal heart sounds. RESPIRATORY: Normal breath sounds. ABDOMEN: Showed unremarkable findings. LABORATORY WORKUP: WBC count 7500. Chemistry: Liver enzymes are improving. AST down to 54, ALT down to 318 from 469, alkaline phosphat ase is down to 101. Bilirubin is 0.5. Lipase is 138. Amylase is 73. CLINICAL IMPRESSION: The patient is presenting with cholangitis and then ERCP was done. Change of t he stent was performed into the bile duct. PLAN: According to nursing, apparently it is believed that he is going to have cholecystectomy eithe r today or tomorrow. Continue present management. Dictated By: CHARLEY SPRINGER/BRIELLE Conf#: [id number] DID#: [id number] CC: NICA MANN MD;*EndCC*
== END 2018-10-03 16:40 | disposition home or self-care (01) | DRG 418 ==
LOC: FTE 00:35 → MS1 03:18
PROVIDERS: ADMIT Hospitalist; ATTEND Internal Medicine
PROC: 0FPB8DZ Removal of Intraluminal Device from Hepatobiliary Duct, Via Natural or Artificial Opening Endoscopic (ICD-10-PCS; 2018-09-29)
PROC: 0F778DZ Dilation of Common Hepatic Duct with Intraluminal Device, Via Natural or Artificial Opening Endoscopic (ICD-10-PCS; 2018-09-29)
PROC: 0FT44ZZ Resection of Gallbladder, Percutaneous Endoscopic Approach (ICD-10-PCS; principal; 2018-10-02 07:30)
DX: K80.12 Calculus of gallbladder with acute and chronic cholecystitis without obstruction (principal); K83.09 Other cholangitis
CPT/HCPCS: 71045; 74176; 74181; 74330; 76705; 80048; 80053; 80061; 80076; 82150; 83036; 83605; 83690; 83735; 84100; 84439; 84443; 85025; 85610; 85730; 86704; 86709; 86803; 87081; 87340; 88304; C2617; J0690; J1100; J1644; J1885; J2250; J2270; J2405; J2543; J2710; J3010; J3370; J7030; J7040; J7042; J7120